=== PATIENT | female | born 1950 | race Two or more races ===

== ENCOUNTER 2016-04-10 12:22 | Inpatient (IN) | payer MEDICARE, MEDICAID ==
[~2016-04-10] VITALS: Ht 157.5 cm; Wt 80.6 kg
[~2016-04-10 12:22] MED LIST: FAM20T PO; IBUP800T24 PO; LIS10T PO; LOSA50TA6 PO; MELO-85 PO; METF-312 PO; OMEP20CA5 PO; OXYB15TA12 PO; PANT1INJ3 PO; PRE1T PO; SUMA50TA2 PO
[2016-04-10 13:57] LABS: Basophils # (auto) 0 uL; Basophils % (auto) 0.4 % (0.0-2.0); Eosinophils # (auto) 0 uL; Eosinophils % (auto) 0.8 % (0.0-7.0); Hematocrit 40.4 % (36.0-46.0); Hemoglobin 13.4 g/dL (12.2-16.2); Lymphocytes # (auto) 0.4 uL; Lymphocytes % (auto) 7.5 % (10.0-50.0); Mean Corpuscular Hgb Conc. 33.3 g/dL (32.0-36.0); Mean Corpuscular Volume 84.4 fL (80.0-100.0); Mean Platelet Volume 10.5 fL (7.4-10.4); Monocytes # (auto) 0.5 uL; Monocytes % (auto) 9.6 % (0.0-12.0); Neutrophils # (auto) 4.3 uL; Neutrophils % (auto) 81.7 % (37.0-80.0); Platelet Count (auto) 88 10^3/uL (140-450); Red Cell Distribution Width 15.4 % (11.6-16.0); White Blood Cell 5.2 10^3/uL (4.4-10.8)
[2016-04-10 14:06] LABS: Albumin 3.4 g/dL (3.4-5.0); BUN/Creatinine Ratio 14.3; Bilirubin, Total 1.1 mg/dL (0.2-1.0); Calcium 9.3 mg/dL (8.5-10.1); Potassium 3.7 mmol/L (3.5-5.1); Total Protein 8.5 g/dL (6.4-8.2)
[2016-04-10 14:16] LABS: INR 1.05 (0.9-1.15); Partial Thromboplastin Time 29.7 sec (22.64-33.71); Prothrombin Time 10.8 sec (9.37-12.3)
[2016-04-10 14:53] LABS: Urine Bilirubin Negative (Negative); Urine Blood TRACE /uL (Negative); Urine Color Yellow (Yellow); Urine Glucose Normal (Normal); Urine Ketone 1+ (Negative); Urine Mucus FEW (None Seen); Urine Nitrite Negative (Negative); Urine RBC 2 /hpf (0 - 4); Urine Squamous Epithelial Cell FEW /hpf (<5); Urine Urobilinogen Normal (Negative); Urine pH 6.5 (5.0-8.0)
[2016-04-10] MEDS ORDERED: cefTRIAXone 1GM/50ML D5W 50 ML IV ONE (15:00)
[2016-04-10] MEDS ORDERED: ONDANSETRON HCL 4 MG/2 ML VIAL IV ONE (15:00)
[2016-04-10] MEDS ORDERED: NALBUPHINE HCL 10 MG/1ml INJECTION IV ONE (15:00)
[2016-04-10] MEDS ORDERED: ACETAMINOPHEN 650 mg PER 20 mL UD PO ONE (15:30)
[2016-04-10] MEDS ORDERED: DEXTROSE (50%) 50ML SYRG IV PRN (20:45)
[2016-04-10] MEDS: OXYBUTYNIN CHL 5 MG TAB PO SCH (22:25)
[2016-04-11] MEDS: ACCU-CHEK COMFORT CURVE STRIP VI SCH ×5 (00:27→23:45)
[2016-04-11] MEDS: SODIUM CHLORIDE 0.9% 1,000 ML IV SCH ×2 (00:29→06:08)
[2016-04-11 05:43] VITALS: BP 119/50
[2016-04-11] MEDS: HYDROmorphone HCL 2 MG/ML VL IV PRN ×2 (06:29→16:45)
[2016-04-11] MEDS: ONDANSETRON HCL 4 MG/2 ML VIAL IV PRN ×2 (06:30→16:45)
[2016-04-11] MEDS: InsuLIN REG 1unit/0.01ml Soln (100units/ml) SC SCH ×5 (06:36→23:49)
[2016-04-11 06:46] LABS: Hematocrit 36.2 % (36.0-46.0); Hemoglobin 11.8 g/dL (12.2-16.2); Mean Corpuscular Hemoglobin 27.8 pg (28.0-32.0); Mean Corpuscular Hgb Conc. 32.5 g/dL (32.0-36.0); Mean Corpuscular Volume 85.6 fL (80.0-100.0); Mean Platelet Volume 10.2 fL (7.4-10.4); Platelet Count (auto) 83 10^3/uL (140-450); Red Cell Distribution Width 16.1 % (11.6-16.0); White Blood Cell 3.4 10^3/uL (4.4-10.8)
[2016-04-11 06:59] LABS: Metamyelocytes % 0; Myelocytes % 0; Promyelocytes % 0; Reactive Lymphocytes 0
[2016-04-11 07:46] LABS: Cholesterol 139 mg/dL (<200); LDL Cholesterol 83 mg/dL (<100); Triglycerides 77 mg/dL (<150)
[2016-04-11 08:29] LABS: Platelet Estimate Decreased; RBC Morphology Normal
[2016-04-11] MEDS: cefTRIAXone 1GM/50ML D5W 50 ML IV SCH (08:33)
[2016-04-11 09:18] VITALS: BP 148/85
[2016-04-11] MEDS ORDERED: LISINOPRIL 10 MG TAB PO SCH (10:00)
[2016-04-11] MEDS ORDERED: ENOXAPARIN SOD 30 MG/0.3 ML SYRINGE SC SCH (10:00)
[2016-04-11] MEDS ORDERED: PANTOPRAZOLE SODIUM 40 MG/10 ML VIAL IV SCH (10:00)
[2016-04-11] MEDS: predniSONE 5 MG TAB PO SCH (10:08)
[2016-04-11] MEDS: LOSARTAN POTASSIUM 50 MG TAB PO SCH (10:09)
[2016-04-11] MEDS: OXYBUTYNIN CHL 5 MG TAB PO SCH ×2 (10:09→21:16)
[2016-04-11 11:40] LABS: HDL Cholesterol 58 mg/dL (40-59)
[2016-04-11 13:00] VITALS: BP 123/59
[2016-04-11] MEDS ORDERED: PANTOPRAZOLE 40 MG TAB PO ONE (13:00)
[2016-04-11] MEDS: metroNIDAZOLE 500 MG TAB PO SCH ×2 (13:39→21:16)
[2016-04-11 17:14] VITALS: BP 108/57
[2016-04-11 21:06] VITALS: BP 116/60
[2016-04-12] MEDS: metroNIDAZOLE 500 MG TAB PO SCH ×3 (05:02→21:51)
[2016-04-12] MEDS: ACCU-CHEK COMFORT CURVE STRIP VI SCH ×3 (05:03→18:07)
[2016-04-12 05:22] VITALS: BP 119/60
[2016-04-12] MEDS: InsuLIN REG 1unit/0.01ml Soln (100units/ml) SC SCH ×3 (05:24→18:08)
[2016-04-12] MEDS: HYDROmorphone HCL 2 MG/ML VL IV PRN ×2 (08:49→16:52)
[2016-04-12] MEDS: cefTRIAXone 1GM/50ML D5W 50 ML IV SCH (08:49)
[2016-04-12 09:00] VITALS: BP 108/56
[2016-04-12] MEDS: OXYBUTYNIN CHL 5 MG TAB PO SCH ×2 (09:57→21:51)
[2016-04-12] MEDS: predniSONE 5 MG TAB PO SCH (09:57)
[2016-04-12] MEDS: LOSARTAN POTASSIUM 50 MG TAB PO SCH (09:57)
[2016-04-12] MEDS: PANTOPRAZOLE 40 MG TAB PO SCH (09:57)
[2016-04-12 13:00] VITALS: BP 113/58
[2016-04-12 17:00] VITALS: BP 127/56
[2016-04-12 22:28] VITALS: BP 127/62
[2016-04-13 05:19] VITALS: BP 124/58
[2016-04-13] MEDS: metroNIDAZOLE 500 MG TAB PO SCH ×3 (05:37→22:33)
[2016-04-13] MEDS: ACCU-CHEK COMFORT CURVE STRIP VI SCH ×4 (05:37→17:47)
[2016-04-13] MEDS: InsuLIN REG 1unit/0.01ml Soln (100units/ml) SC SCH ×4 (05:47→17:47)
[2016-04-13 09:00] VITALS: BP 129/65
[2016-04-13] MEDS: cefTRIAXone 1GM/50ML D5W 50 ML IV SCH (09:03)
[2016-04-13] MEDS: HYDROmorphone HCL 2 MG/ML VL IV PRN (09:04)
[2016-04-13] MEDS: predniSONE 5 MG TAB PO SCH (09:32)
[2016-04-13] MEDS: LOSARTAN POTASSIUM 50 MG TAB PO SCH (09:32)
[2016-04-13] MEDS: OXYBUTYNIN CHL 5 MG TAB PO SCH ×2 (09:32→22:33)
[2016-04-13] MEDS: PANTOPRAZOLE 40 MG TAB PO SCH (09:32)
[2016-04-13 13:00] VITALS: BP 117/59
[2016-04-13] MEDS: ONDANSETRON HCL 4 MG/2 ML VIAL IV PRN (13:31)
[2016-04-13 15:00] VITALS: BP 133/66
[2016-04-13 18:25] LABS: Hematocrit 38.2 % (36.0-46.0); Hemoglobin 12.1 g/dL (12.2-16.2)
[2016-04-13 22:05] VITALS: BP 128/63
[2016-04-14] MEDS: InsuLIN REG 1unit/0.01ml Soln (100units/ml) SC SCH ×4 (00:03→18:05)
[2016-04-14 01:09] LABS: Hematocrit 36.9 % (36.0-46.0); Hemoglobin 11.9 g/dL (12.2-16.2)
[2016-04-14 05:00] VITALS: BP 105/55
[2016-04-14 05:05] LABS: Basophils # (auto) 0 uL; Basophils % (auto) 0.4 % (0.0-2.0); Eosinophils # (auto) 0 uL; Eosinophils % (auto) 1.1 % (0.0-7.0); Hematocrit 36.6 % (36.0-46.0); Hemoglobin 11.7 g/dL (12.2-16.2); Lymphocytes # (auto) 0.9 uL; Lymphocytes % (auto) 40.1 % (10.0-50.0); Mean Corpuscular Hemoglobin 27.5 pg (28.0-32.0); Mean Corpuscular Hgb Conc. 32.1 g/dL (32.0-36.0); Mean Corpuscular Volume 85.6 fL (80.0-100.0); Mean Platelet Volume 9.7 fL (7.4-10.4); Monocytes # (auto) 0.4 uL; Monocytes % (auto) 15.1 % (0.0-12.0); Neutrophils % (auto) 43.3 % (37.0-80.0); Platelet Count (auto) 82 10^3/uL (140-450); Red Cell Distribution Width 15.3 % (11.6-16.0); White Blood Cell 2.4 10^3/uL (4.4-10.8)
[2016-04-14 05:16] LABS: INR 1.06 (0.9-1.15); Prothrombin Time 10.9 sec (9.37-12.3)
[2016-04-14 05:25] LABS: Albumin 2.5 g/dL (3.4-5.0); BUN/Creatinine Ratio 11.1; Calcium 8.4 mg/dL (8.5-10.1); Potassium 3.4 mmol/L (3.5-5.1)
[2016-04-14] MEDS: metroNIDAZOLE 500 MG TAB PO SCH ×3 (05:33→22:28)
[2016-04-14 05:36] LABS: Bilirubin, Total 0.2 mg/dL (0.2-1.0); Total Protein 6.8 g/dL (6.4-8.2)
[2016-04-14] MEDS: ACCU-CHEK COMFORT CURVE STRIP VI SCH ×4 (05:42→18:05)
[2016-04-14] MEDS: cefTRIAXone 1GM/50ML D5W 50 ML IV SCH ×2 (08:59→09:00)
[2016-04-14 09:00] VITALS: BP 130/73
[2016-04-14] MEDS: predniSONE 5 MG TAB PO SCH (10:00)
[2016-04-14] MEDS: OXYBUTYNIN CHL 5 MG TAB PO SCH ×2 (10:00→22:28)
[2016-04-14] MEDS: PANTOPRAZOLE 40 MG TAB PO SCH (10:00)
[2016-04-14] MEDS: LOSARTAN POTASSIUM 50 MG TAB PO SCH (10:00)
[2016-04-14] MEDS: fentaNYL CITRATE 100 MCG/2 ML VL ONE ×2 (11:22→11:29)
[2016-04-14] MEDS: MIDAZOLAM HCL 5 MG/ML-1ML VIAL ONE ×2 (11:22→11:29)
[2016-04-14] MEDS ORDERED: PROPRANOLOL HCL 20 MG TAB PO ONE (12:00)
[2016-04-14] MEDS ORDERED: LIDOCAINE VISCOUS 2% 15ML UD ONE (14:12)
[2016-04-14] MEDS ORDERED: SODIUM CHLORIDE LOCK 10 ML ONE (14:15)
[2016-04-14] MEDS ORDERED: diphenhdrAMINE HCL 50 MG/1 ML VL ONE ×2 (14:18→14:26)
[2016-04-14 14:22] LABS: Hematocrit 36.7 % (36.0-46.0); Hemoglobin 11.8 g/dL (12.2-16.2)
[2016-04-14 16:46] VITALS: BP 142/72
[2016-04-14 18:49] LABS: Hematocrit 38.8 % (36.0-46.0); Hemoglobin 12.4 g/dL (12.2-16.2)
[2016-04-14 21:56] VITALS: BP 146/65
[2016-04-14] MEDS: PROPRANOLOL HCL 20 MG TAB PO SCH (22:00)
[2016-04-15] MEDS: ACCU-CHEK COMFORT CURVE STRIP VI SCH ×3 (00:13→12:21)
[2016-04-15 05:00] VITALS: BP 126/65
[2016-04-15] MEDS: metroNIDAZOLE 500 MG TAB PO SCH (05:55)
[2016-04-15] MEDS: InsuLIN REG 1unit/0.01ml Soln (100units/ml) SC SCH ×3 (06:00→12:00)
[2016-04-15 06:18] LABS: Basophils # (auto) 0 uL; Basophils % (auto) 0.6 % (0.0-2.0); Eosinophils # (auto) 0 uL; Eosinophils % (auto) 1.3 % (0.0-7.0); Hematocrit 36.9 % (36.0-46.0); Hemoglobin 12.1 g/dL (12.2-16.2); Lymphocytes % (auto) 40.4 % (10.0-50.0); Mean Corpuscular Hemoglobin 28.1 pg (28.0-32.0); Mean Corpuscular Hgb Conc. 32.9 g/dL (32.0-36.0); Mean Corpuscular Volume 85.4 fL (80.0-100.0); Mean Platelet Volume 9.6 fL (7.4-10.4); Monocytes # (auto) 0.3 uL; Monocytes % (auto) 14.1 % (0.0-12.0); Neutrophils # (auto) 1.1 uL; Neutrophils % (auto) 43.6 % (37.0-80.0); Platelet Count (auto) 69 10^3/uL (140-450); Red Cell Distribution Width 15.2 % (11.6-16.0); White Blood Cell 2.5 10^3/uL (4.4-10.8)
[2016-04-15 06:33] LABS: INR 1.13 (0.9-1.15); Prothrombin Time 11.6 sec (9.37-12.3)
[2016-04-15 06:42] LABS: Calcium 8.2 mg/dL (8.5-10.1); Magnesium 1.8 mg/dL (1.6-2.6); Potassium 3.1 mmol/L (3.5-5.1)
[2016-04-15 09:00] VITALS: BP 131/71
[2016-04-15] MEDS: cefTRIAXone 1GM/50ML D5W 50 ML IV SCH (09:00)
[2016-04-15] MEDS: PANTOPRAZOLE 40 MG TAB PO SCH (10:07)
[2016-04-15] MEDS: OXYBUTYNIN CHL 5 MG TAB PO SCH (10:07)
[2016-04-15] MEDS: predniSONE 5 MG TAB PO SCH (10:07)
[2016-04-15] MEDS: PROPRANOLOL HCL 20 MG TAB PO SCH (10:07)
[2016-04-15] MEDS: LOSARTAN POTASSIUM 50 MG TAB PO SCH (10:08)
[2016-04-15 13:00] VITALS: BP 149/73
== END 2016-04-15 15:00 | disposition home or self-care (01) | DRG 444 ==
LOC: ER 12:27 → OVERFLOW 12:28 → WEST WING 22:25
PROVIDERS: ADMIT Family Medicine; ATTEND Internal Medicine
PROC: 0W3P8ZZ Control Bleeding in Gastrointestinal Tract, Via Natural or Artificial Opening Endoscopic (ICD-10-PCS; principal; 2016-04-14 11:17)
DX: K80.20 Calculus of gallbladder without cholecystitis without obstruction (principal); I85.01 Esophageal varices with bleeding; N39.0 Urinary tract infection, site not specified; K74.60 Unspecified cirrhosis of liver; D69.6 Thrombocytopenia, unspecified; E11.9 Type 2 diabetes mellitus without complications; E66.9 Obesity, unspecified; A08.4 Viral intestinal infection, unspecified; K29.70 Gastritis, unspecified, without bleeding; K76.0 Fatty (change of) liver, not elsewhere classified; G43.909 Migraine, unspecified, not intractable, without status migrainosus; I10 Essential (primary) hypertension; K57.30 Diverticulosis of large intestine without perforation or abscess without bleeding; Z85.41 Personal history of malignant neoplasm of cervix uteri; Z90.710 Acquired absence of both cervix and uterus; Z88.5 Allergy status to narcotic agent; Z79.84 Long term (current) use of oral hypoglycemic drugs; Z98.890 Other specified postprocedural states; Z68.32 Body mass index [BMI] 32.0-32.9, adult
CPT/HCPCS: 36415; 43244; 71010; 74176; 80048; 80053; 80061; 81001; 82150; 82270; 82962; 83036; 83690; 83735; 84484; 85007; 85014; 85018; 85025; 85027; 85610; 85730; 93005; 94761; 96365; 96375; C9113; J0696; J1815; J2250; J2405

== ENCOUNTER → 2016-06-16 | Outpatient (CLI) | payer MEDICARE, MEDICAID ==
[~2016-06-16] MED LIST changes: -IBUP800T24 PO
[2016-06-16 15:11] LABS: Basophils # (auto) 0 uL; Basophils % (auto) 0.7 % (0.0-2.0); Eosinophils # (auto) 0.1 uL; Hematocrit 37.1 % (36.0-46.0); Hemoglobin 12.3 g/dL (12.2-16.2); Lymphocytes % (auto) 25.3 % (10.0-50.0); Mean Corpuscular Hemoglobin 28.3 pg (28.0-32.0); Mean Corpuscular Hgb Conc. 33.2 g/dL (32.0-36.0); Mean Corpuscular Volume 85.3 fL (80.0-100.0); Mean Platelet Volume 9.9 fL (7.4-10.4); Monocytes # (auto) 0.4 uL; Monocytes % (auto) 10.5 % (0.0-12.0); Neutrophils # (auto) 2.4 uL; Neutrophils % (auto) 61.5 % (37.0-80.0); Platelet Count (auto) 102 10^3/uL (140-450); Red Cell Distribution Width 16.2 % (11.6-16.0); White Blood Cell 3.9 10^3/uL (4.4-10.8)
[2016-06-16 16:17] LABS: Hepatitis B Surface Antibody Negative
== END | disposition home or self-care (01) ==
LOC: LAB 13:17
PROVIDERS: ATTEND Internal Medicine
DX: E11.9 Type 2 diabetes mellitus without complications (principal); M25.579 Pain in unspecified ankle and joints of unspecified foot; I10 Essential (primary) hypertension
CPT/HCPCS: 36415; 82607; 84439; 84443; 85025; 86160; 86225; 86235; 86376; 86431; 86704; 86705; 86706; 86708; 86803; 87340

== ENCOUNTER → 2016-07-19 | Outpatient (CLI) | payer MEDICARE, MEDICAID ==
[~2016-07-19] MED LIST changes: +GLIM1TAB PO; +LEVO25TA49 PO; -LOSA50TA6 PO; -MELO-85 PO; -METF-312 PO; -OXYB15TA12 PO; -PANT1INJ3 PO; -PRE1T PO; +SOTA80TA20 PO
== END | disposition home or self-care (01) ==
LOC: LAB 15:00
PROVIDERS: ATTEND Internal Medicine
DX: M25.50 Pain in unspecified joint (principal); R30.0 Dysuria; E87.6 Hypokalemia
CPT/HCPCS: 36415; 84132; 86225; 86235; 87086

== ENCOUNTER 2016-08-18 08:16 | Day surgery (SDC) | payer MEDICARE, MEDICAID ==
[2016-08-16 13:42] LABS: Basophils # (auto) 0 uL; Basophils % (auto) 1.1 % (0.0-2.0); Eosinophils # (auto) 0.1 uL; Eosinophils % (auto) 1.9 % (0.0-7.0); Hematocrit 37.8 % (36.0-46.0); Hemoglobin 12.3 g/dL (12.2-16.2); Lymphocytes # (auto) 0.9 uL; Lymphocytes % (auto) 22.8 % (10.0-50.0); Mean Corpuscular Hemoglobin 27.7 pg (28.0-32.0); Mean Corpuscular Hgb Conc. 32.4 g/dL (32.0-36.0); Mean Corpuscular Volume 85.4 fL (80.0-100.0); Mean Platelet Volume 10.5 fL (7.4-10.4); Monocytes # (auto) 0.3 uL; Monocytes % (auto) 7.6 % (0.0-12.0); Neutrophils # (auto) 2.6 uL; Neutrophils % (auto) 66.6 % (37.0-80.0); Platelet Count (auto) 108 10^3/uL (140-450); Red Cell Distribution Width 15.8 % (11.6-16.0); White Blood Cell 3.9 10^3/uL (4.4-10.8)
[2016-08-16 13:48] LABS: INR 1.01 (0.9-1.15); Prothrombin Time 10.9 sec (9.37-12.3)
[~2016-08-18] VITALS: Ht 157.5 cm; Wt 77.1 kg
[~2016-08-18 08:16] MED LIST changes: -FAM20T PO; -LIS10T PO; +LOSA50TA6 PO; -OMEP20CA5 PO; +PANT40TA2 PO; +PRO20T OR; -SOTA80TA20 PO; -SUMA50TA2 PO
[2016-08-18 10:20] VITALS: BP 159/73
[2016-08-19] MEDS ORDERED: LIDOCAINE VISCOUS 2% 15ML UD ONE (12:49)
[2016-08-19] MEDS ORDERED: SODIUM CHLORIDE LOCK 0 ML ONE (12:49)
[2016-08-19] MEDS ORDERED: MIDAZOLAM HCL 5 MG/ML-1ML VIAL ONE (12:50)
[2016-08-19] MEDS ORDERED: diphenhdrAMINE HCL 50 MG/1 ML VL ONE (12:50)
[2016-08-19] MEDS ORDERED: fentaNYL CITRATE 100 MCG/2 ML VL ONE (12:50)
== END 2016-08-18 10:30 | disposition home or self-care (01) ==
LOC: GI 08:16
PROVIDERS: ATTEND Internal Medicine Gastroenterology
DX: K29.50 Unspecified chronic gastritis without bleeding (principal); I85.10 Secondary esophageal varices without bleeding; K76.6 Portal hypertension; K31.89 Other diseases of stomach and duodenum; E66.9 Obesity, unspecified; Z90.710 Acquired absence of both cervix and uterus; E11.9 Type 2 diabetes mellitus without complications
CPT/HCPCS: 36415; 43235; 82962; 85025; 85610; 85730; J2250; J3010; J7030

== ENCOUNTER 2016-11-15 09:41 | Emergency (ER) | payer MEDICARE, MEDICAID ==
[~2016-11-15] VITALS: Ht 160 cm; Wt 78.0 kg
[2016-11-15 10:48] VITALS: BP 136/85
== END 2016-11-15 11:45 | disposition home or self-care (01) ==
LOC: ER 09:41
DX: G89.29 Other chronic pain (principal); R51 Headache; Z88.6 Allergy status to analgesic agent; Z79.899 Other long term (current) drug therapy; E11.9 Type 2 diabetes mellitus without complications; I10 Essential (primary) hypertension; Z87.440 Personal history of urinary (tract) infections; Z90.710 Acquired absence of both cervix and uterus

== ENCOUNTER → 2016-11-30 | Outpatient (CLI) | payer MEDICARE, MEDICAID ==
[2016-11-30 10:45] LABS: Potassium 3.1 mmol/L (3.5-5.1)
[2016-11-30 10:46] LABS: Magnesium 2.1 mg/dL (1.6-2.6)
[2016-12-02 12:07] LABS: Fecal Fats Neutral Normal (.); Fecal Fats Total Normal (.)
== END | disposition home or self-care (01) ==
LOC: LAB 09:32
PROVIDERS: ATTEND Internal Medicine Gastroenterology
DX: E11.9 Type 2 diabetes mellitus without complications (principal); R19.7 Diarrhea, unspecified
CPT/HCPCS: 36415; 82705; 83036; 83735; 84132; 84439; 84443; 87045; 87177; 87493; 87899

== ENCOUNTER → 2016-12-22 | Outpatient (CLI) | payer MEDICARE, MEDICAID | END | disposition home or self-care (01) | LOC: LAB 12:16 | PROVIDERS: ATTEND Urology | DX: N39.0 Urinary tract infection, site not specified (principal); I10 Essential (primary) hypertension; E11.9 Type 2 diabetes mellitus without complications | CPT/HCPCS: 87086; 87088; 87186 ==

== ENCOUNTER → 2017-01-02 | Outpatient (CLI) | payer MEDICARE, MEDICAID ==
[~2017-01-02] VITALS: Ht 157.5 cm; Wt 80.3 kg
[2017-01-02 10:32] LABS: Basophils # (auto) 0.1 uL; Basophils % (auto) 1.5 % (0.0-2.0); Eosinophils # (auto) 0.1 uL; Eosinophils % (auto) 2.5 % (0.0-7.0); Hematocrit 38.3 % (36.0-46.0); Hemoglobin 12.8 g/dL (12.2-16.2); Lymphocytes # (auto) 1.1 uL; Lymphocytes % (auto) 24.6 % (10.0-50.0); Mean Corpuscular Hemoglobin 29.1 pg (28.0-32.0); Mean Corpuscular Hgb Conc. 33.5 g/dL (32.0-36.0); Mean Corpuscular Volume 86.9 fL (80.0-100.0); Mean Platelet Volume 9.2 fL (6.9-10.8); Monocytes # (auto) 0.4 uL; Monocytes % (auto) 8.5 % (0.0-12.0); Neutrophils # (auto) 2.7 uL; Neutrophils % (auto) 62.9 % (37.0-80.0); Nucleated Red Blood Cells % 0.1 %; Platelet Count (auto) 82 10^3/uL (140-450); Red Cell Distribution Width 14.7 % (11.8-14.3); White Blood Cell 4.3 10^3/uL (4.4-10.8)
[2017-01-02 11:20] LABS: INR 1.01 (0.9-1.15)
[2017-01-02 11:23] LABS: Albumin 3.1 g/dL (3.4-5.0); BUN/Creatinine Ratio 29.2; Bilirubin, Total 0.9 mg/dL (0.2-1.0); Calcium 9.2 mg/dL (8.5-10.1); Potassium 3.6 mmol/L (3.5-5.1); Total Protein 8.2 g/dL (6.4-8.2)
== END | disposition home or self-care (01) ==
LOC: LAB 08:00 → EDSTATUS 01-06 11:15
PROVIDERS: ATTEND Internal Medicine Gastroenterology
DX: I85.00 Esophageal varices without bleeding (principal); Z85.41 Personal history of malignant neoplasm of cervix uteri; I10 Essential (primary) hypertension; Z90.710 Acquired absence of both cervix and uterus; Z79.899 Other long term (current) drug therapy
CPT/HCPCS: 36415; 80053; 82105; 85025; 85610

== ENCOUNTER 2017-01-04 08:21 | Emergency (ER) | payer MEDICARE, MEDICAID ==
[~2017-01-04] VITALS: Ht 160 cm; Wt 78.9 kg
[~2017-01-04 08:21] MED LIST changes: -LEVO25TA49 PO; -LOSA50TA6 PO
[2017-01-04 09:30] LABS: Basophils # (auto) 0 uL; Basophils % (auto) 0.4 % (0.0-2.0); Eosinophils # (auto) 0 uL; Eosinophils % (auto) 0.3 % (0.0-7.0); Hematocrit 38.8 % (36.0-46.0); Hemoglobin 12.9 g/dL (12.2-16.2); Lymphocytes # (auto) 0.8 uL; Lymphocytes % (auto) 8.7 % (10.0-50.0); Mean Corpuscular Hemoglobin 29.1 pg (28.0-32.0); Mean Corpuscular Hgb Conc. 33.3 g/dL (32.0-36.0); Mean Corpuscular Volume 87.3 fL (80.0-100.0); Mean Platelet Volume 9.2 fL (6.9-10.8); Monocytes # (auto) 0.5 uL; Monocytes % (auto) 5.4 % (0.0-12.0); Neutrophils # (auto) 7.5 uL; Neutrophils % (auto) 85.2 % (37.0-80.0); Nucleated Red Blood Cells % 0.1 %; Platelet Count (auto) 78 10^3/uL (140-450); Red Cell Distribution Width 14.8 % (11.8-14.3); White Blood Cell 8.8 10^3/uL (4.4-10.8)
[2017-01-04 09:51] LABS: Albumin 3.1 g/dL (3.4-5.0); BUN/Creatinine Ratio 16.1; Calcium 9.2 mg/dL (8.5-10.1); Potassium 3.3 mmol/L (3.5-5.1)
[2017-01-04 09:54] LABS: Total Protein 7.9 g/dL (6.4-8.2)
[2017-01-04 10:18] LABS: Urine Bilirubin Negative (Negative); Urine Blood TRACE /uL (Negative); Urine Color Yellow (Yellow); Urine Glucose Normal (Normal); Urine Ketone Negative (Negative); Urine Mucus FEW (None Seen); Urine Nitrite Negative (Negative); Urine RBC 1 /hpf (0 - 4); Urine Squamous Epithelial Cell FEW /hpf (<5); Urine Urobilinogen Normal (Negative)
[2017-01-04] MEDS ORDERED: SODIUM CHLORIDE 0.9% 1,000 ML IV ONE (11:34)
[2017-01-04] MEDS ORDERED: METOCLOPRAMIDE HCL 5MG/ml INJ 2ml VIAL IV ONE (11:45)
[2017-01-04] MEDS ORDERED: KETOROLAC TROMETH 30 MG/ML 1ML VIAL IV ONE (11:45)
[2017-01-04] MEDS ORDERED: POTASSIUM CHL 10% (20 MEQ/15ML) 15ml ORAL SOLN PO ONE (13:45)
[2017-01-04 14:07] VITALS: BP 160/60
== END 2017-01-04 14:22 | disposition home or self-care (01) ==
LOC: ER 08:21
DX: M54.9 Dorsalgia, unspecified (principal); G89.29 Other chronic pain; R51 Headache; E11.9 Type 2 diabetes mellitus without complications; K21.9 Gastro-esophageal reflux disease without esophagitis; I10 Essential (primary) hypertension; E87.6 Hypokalemia; E44.0 Moderate protein-calorie malnutrition; Z85.41 Personal history of malignant neoplasm of cervix uteri; Z88.5 Allergy status to narcotic agent
CPT/HCPCS: 36415; 71020; 80053; 81001; 83735; 85025; 94761; 96361; 96374; 96375; 99285; J1885; J2765; J7030; 93005

== ENCOUNTER 2017-03-02 16:10 | Emergency (ER) | payer MEDICARE, MEDICAID ==
[~2017-03-02] VITALS: Ht 157.5 cm; Wt 77.1 kg
[2017-03-02 17:32] VITALS: BP 178/79
== END 2017-03-02 17:57 | disposition home or self-care (01) ==
LOC: ER 16:17
DX: S80.221A Blister (nonthermal), right knee, initial encounter (principal); E11.9 Type 2 diabetes mellitus without complications; K21.9 Gastro-esophageal reflux disease without esophagitis; I10 Essential (primary) hypertension; Z90.710 Acquired absence of both cervix and uterus; Z88.6 Allergy status to analgesic agent; W19.XXXA Unspecified fall, initial encounter; Y93.89 Activity, other specified; Y99.8 Other external cause status; Y92.89 Other specified places as the place of occurrence of the external cause
CPT/HCPCS: 73562

== ENCOUNTER → 2017-03-16 | Outpatient (CLI) | payer MEDICARE, MEDICAID ==
[2017-03-16 11:55] LABS: Basophils # (auto) 0.1 uL; Basophils % (auto) 1.3 % (0.0-2.0); Eosinophils # (auto) 0.1 uL; Eosinophils % (auto) 2.1 % (0.0-7.0); Hematocrit 40.5 % (36.0-46.0); Hemoglobin 13.5 g/dL (12.2-16.2); Lymphocytes % (auto) 20.7 % (10.0-50.0); Mean Corpuscular Hemoglobin 29.3 pg (28.0-32.0); Mean Corpuscular Hgb Conc. 33.2 g/dL (32.0-36.0); Mean Corpuscular Volume 88.2 fL (80.0-100.0); Monocytes # (auto) 0.4 uL; Monocytes % (auto) 8.9 % (0.0-12.0); Neutrophils # (auto) 3.3 uL; Nucleated Red Blood Cells % 0.1 %; Platelet Count (auto) 106 10^3/uL (140-450); Red Cell Distribution Width 16.2 % (11.8-14.3); White Blood Cell 4.8 10^3/uL (4.4-10.8)
== END | disposition home or self-care (01) ==
LOC: LAB 11:30
PROVIDERS: ATTEND Internal Medicine
DX: E11.9 Type 2 diabetes mellitus without complications (principal); E03.9 Hypothyroidism, unspecified; N39.0 Urinary tract infection, site not specified
CPT/HCPCS: 36415; 83036; 84439; 84443; 85025; 85652; 87086

== ENCOUNTER 2017-04-05 12:22 | Emergency (ER) | payer MEDICARE, MEDICAID ==
[~2017-04-05] VITALS: Ht 157.5 cm; Wt 78.9 kg
[2017-04-05 14:16] LABS: Basophils # (auto) 0 uL; Basophils % (auto) 0.5 % (0.0-2.0); Eosinophils # (auto) 0.1 uL; Eosinophils % (auto) 1.2 % (0.0-7.0); Hematocrit 37.8 % (36.0-46.0); Hemoglobin 12.5 g/dL (12.2-16.2); Lymphocytes # (auto) 0.5 uL; Lymphocytes % (auto) 8.8 % (10.0-50.0); Mean Corpuscular Hgb Conc. 32.9 g/dL (32.0-36.0); Monocytes # (auto) 0.3 uL; Neutrophils # (auto) 4.4 uL; Neutrophils % (auto) 83.5 % (37.0-80.0); Nucleated Red Blood Cells % 0.2 %; Platelet Count (auto) 106 10^3/uL (140-450); Red Cell Distribution Width 15.6 % (11.8-14.3); White Blood Cell 5.2 10^3/uL (4.4-10.8)
[2017-04-05 14:21] LABS: BUN/Creatinine Ratio 21.9; Calcium 8.9 mg/dL (8.5-10.1); Potassium 3.5 mmol/L (3.5-5.1); Total Protein 8.2 g/dL (6.4-8.2)
[2017-04-05 17:03] VITALS: BP 150/78
== END 2017-04-05 17:33 | disposition home or self-care (01) ==
LOC: ER 12:22
DX: R19.7 Diarrhea, unspecified (principal); K21.9 Gastro-esophageal reflux disease without esophagitis; E11.9 Type 2 diabetes mellitus without complications; I10 Essential (primary) hypertension; Z85.41 Personal history of malignant neoplasm of cervix uteri; Z88.5 Allergy status to narcotic agent
CPT/HCPCS: 36415; 80053; 85025

== ENCOUNTER → 2017-07-05 | Outpatient (CLI) | payer MEDICARE, MEDICAID ==
[2017-07-05 09:48] LABS: Basophils # (auto) 0 uL; Basophils % (auto) 1.1 % (0.0-2.0); Eosinophils # (auto) 0.1 uL; Eosinophils % (auto) 2.1 % (0.0-7.0); Hematocrit 38.9 % (36.0-46.0); Lymphocytes # (auto) 0.9 uL; Lymphocytes % (auto) 22.9 % (10.0-50.0); Mean Corpuscular Hemoglobin 29.4 pg (28.0-32.0); Mean Corpuscular Hgb Conc. 33.4 g/dL (32.0-36.0); Monocytes # (auto) 0.3 uL; Neutrophils # (auto) 2.5 uL; Neutrophils % (auto) 65.9 % (37.0-80.0); Platelet Count (auto) 86 10^3/uL (140-450); Red Blood Cells 4.42 10^6/uL (4.0-5.20); Red Cell Distribution Width 15.1 % (11.8-14.3); White Blood Cell 3.8 10^3/uL (4.4-10.8)
[2017-07-05 10:05] LABS: Urine Bacteria NONE SEEN /hpf (None Seen); Urine Blood Negative /uL (Negative); Urine Mucus FEW (None Seen); Urine Specific Gravity 1.013 (1.001-1.035); Urine WBC 2 /hpf (0 - 5)
[2017-07-05 10:32] LABS: Albumin 2.9 g/dL (3.4-5.0); Calcium 9.2 mg/dL (8.5-10.1); Potassium 4.1 mmol/L (3.5-5.1)
[2017-07-05 10:42] LABS: BUN/Creatinine Ratio 19.7; Bilirubin, Total 0.8 mg/dL (0.2-1.0); Total Protein 8.1 g/dL (6.4-8.2)
== END | disposition home or self-care (01) ==
LOC: LAB 09:13
PROVIDERS: ATTEND Internal Medicine
DX: E78.00 Pure hypercholesterolemia, unspecified (principal); E11.9 Type 2 diabetes mellitus without complications; I10 Essential (primary) hypertension
CPT/HCPCS: 36415; 80053; 80061; 81001; 82043; 83036; 84439; 84443; 85025; 85652

== ENCOUNTER → 2017-07-05 | Outpatient (CLI) | payer MEDICARE, MEDICAID | END | disposition home or self-care (01) | LOC: XYW 08:07 | PROVIDERS: ATTEND Internal Medicine | DX: Z01.818 Encounter for other preprocedural examination (principal); I10 Essential (primary) hypertension; E11.9 Type 2 diabetes mellitus without complications; E78.00 Pure hypercholesterolemia, unspecified | CPT/HCPCS: 36415; 80053; 80061; 81001; 82043; 83036; 84439; 84443; 85025; 85652; 93306 ==

== ENCOUNTER → 2017-08-04 | Outpatient (CLI) | payer MEDICARE, MEDICAID | END | disposition home or self-care (01) | LOC: LAB 10:02 | PROVIDERS: ATTEND Internal Medicine | DX: N30.40 Irradiation cystitis without hematuria (principal); R31.9 Hematuria, unspecified; E11.9 Type 2 diabetes mellitus without complications; I10 Essential (primary) hypertension; E78.00 Pure hypercholesterolemia, unspecified | CPT/HCPCS: 87086 ==

== ENCOUNTER 2017-11-24 07:35 | Inpatient (IN) | payer MEDICARE, MEDICAID ==
[~2017-11-24] VITALS: Ht 157.5 cm; Wt 89.9 kg
[2017-11-24] MEDS ORDERED: SODIUM CHLORIDE 0.9% 1,000 ML IV ONE ×2 (08:26)
[2017-11-24] MEDS ORDERED: KETOROLAC TROMETH 30 MG/ML 1ML VIAL IV ONE (08:30)
[2017-11-24 08:34] LABS: Basophils # (auto) 0.1 uL; Basophils % (auto) 0.7 % (0.0-2.0); Eosinophils # (auto) 0 uL; Eosinophils % (auto) 0.4 % (0.0-7.0); Hemoglobin 9.8 g/dL (12.2-16.2); Lymphocytes # (auto) 0.8 uL; Mean Corpuscular Hemoglobin 22.5 pg (28.0-32.0); Mean Corpuscular Hgb Conc. 31.4 g/dL (32.0-36.0); Mean Corpuscular Volume 71.7 fL (80.0-100.0)
[2017-11-24 08:36] LABS: Hematocrit 31.2 % (36.0-46.0); Monocytes # (auto) 0.6 uL; Monocytes % (auto) 8.1 % (0.0-12.0); Neutrophils # (auto) 6.2 uL; Neutrophils % (auto) 80.8 % (37.0-80.0); Platelet Count (auto) 96 10^3/uL (140-450); Red Blood Cells 4.35 10^6/uL (4.0-5.20); White Blood Cell 7.7 10^3/uL (4.4-10.8)
[2017-11-24 08:55] LABS: Urine Bacteria FEW /hpf (None Seen); Urine Blood 2+ /uL (Negative); Urine Specific Gravity 1.017 (1.001-1.035); Urine WBC 1943 /hpf (0 - 5); Urine WBC Clumps PRESENT /hpf (None Seen)
[2017-11-24 08:55] LABS: Anion Gap 10 (5-15); Aspartate Aminotransferase 29 U/L (15-37); BUN/Creatinine Ratio 13.9; Blood Urea Nitrogen 10 mg/dL (7-18); Calcium 8.6 mg/dL (8.5-10.1); Carbon Dioxide 21 mmol/L (21-32); Chloride 108 mmol/L (98-107); GFR African American 104 mL/min; GFR Non-African American 86 mL/min; Glucose 182 mg/dL (74-106); Potassium 4.2 mmol/L (3.5-5.1); Sodium 139 mmol/L (136-145)
[2017-11-24 09:00] LABS: Alanine Aminotransferase 20 U/L (13-56); Alkaline Phosphatase 179 U/L (45-117); Bilirubin, Total 1.5 mg/dL (0.2-1.0); Total Protein 8.2 g/dL (6.4-8.2)
[2017-11-24] MEDS ORDERED: cefTRIAXone 1GM/10ml IVPUSH 10 ML IV ONE (09:15)
[2017-11-24] MEDS ORDERED: ONDANSETRON HCL 4 MG/2 ML VIAL IV ONE (09:15)
[2017-11-24] MEDS: SODIUM CHLORIDE 0.9% 1,000 ML IV SCH ×2 (10:06→20:21)
[2017-11-24] MEDS ORDERED: PROMETHAZINE HCL 25 MG/ML 1ML IV PRN (10:15)
[2017-11-24] MEDS ORDERED: LORazepam 0.5 MG TAB PO PRN (10:15)
[2017-11-24] MEDS ORDERED: TEMAZEPAM 15 MG CAP PO PRN (10:15)
[2017-11-24] MEDS ORDERED: NITROGLYCERIN 0.4 MG SL TAB SL PRN (10:15)
[2017-11-24] MEDS ORDERED: traMADol HCL 50 MG TAB PO PRN (10:15)
[2017-11-24] MEDS ORDERED: DEXTROSE (50%) 50ML SYRG IV PRN (10:15)
[2017-11-24] MEDS ORDERED: IOHEXOL 300 MG/ML 100ML BOTTLE IJ ONE ×2 (10:23→14:14)
[2017-11-24] MEDS: PANTOPRAZOLE 40 MG TAB PO SCH (10:45)
[2017-11-24] MEDS: ACCU-CHEK COMFORT CURVE STRIP VI SCH ×3 (14:04→22:20)
[2017-11-24] MEDS: ENOXAPARIN SOD 40 MG/0.4 ML SYRINGE SC SCH (14:54)
[2017-11-24] MEDS: InsuLIN REG 1unit/0.01ml Soln (100units/ml) SC SCH ×3 (14:54→22:20)
[2017-11-24 21:25] VITALS: BP 150/73
[2017-11-24 22:27] VITALS: BP 150/73
[2017-11-25 05:00] VITALS: BP 136/60
[2017-11-25] MEDS: SODIUM CHLORIDE 0.9% 1,000 ML IV SCH ×2 (05:41→16:09)
[2017-11-25] MEDS: InsuLIN REG 1unit/0.01ml Soln (100units/ml) SC SCH ×4 (06:15→21:34)
[2017-11-25] MEDS: ACCU-CHEK COMFORT CURVE STRIP VI SCH ×4 (06:17→21:33)
[2017-11-25 07:54] LABS: Basophils # (auto) 0 uL; Eosinophils # (auto) 0.1 uL; Eosinophils % (auto) 1.6 % (0.0-7.0); Hemoglobin 8.3 g/dL (12.2-16.2); Lymphocytes # (auto) 0.5 uL; Monocytes # (auto) 0.4 uL; Neutrophils # (auto) 2.8 uL; White Blood Cell 3.9 10^3/uL (4.4-10.8)
[2017-11-25 07:57] LABS: Hematocrit 26.8 % (36.0-46.0); Lymphocytes % (auto) 13.8 % (10.0-50.0); Mean Corpuscular Hemoglobin 22.3 pg (28.0-32.0); Mean Corpuscular Volume 71.9 fL (80.0-100.0); Monocytes % (auto) 10.4 % (0.0-12.0); Neutrophils % (auto) 73.2 % (37.0-80.0); Platelet Count (auto) 70 10^3/uL (140-450); Red Blood Cells 3.73 10^6/uL (4.0-5.20); Red Cell Distribution Width 18.4 % (11.8-14.3)
[2017-11-25 08:26] LABS: Albumin 2.5 g/dL (3.4-5.0); BUN/Creatinine Ratio 25.5; Bilirubin, Total 1.1 mg/dL (0.2-1.0); Calcium 8.1 mg/dL (8.5-10.1); Potassium 3.9 mmol/L (3.5-5.1); Total Protein 6.9 g/dL (6.4-8.2)
[2017-11-25 09:00] VITALS: BP 151/73
[2017-11-25] MEDS: cefTRIAXone 1GM/10ml IVPUSH 10 ML IV SCH (10:20)
[2017-11-25] MEDS: KETOROLAC TROMETH 30 MG/ML 1ML VIAL IV PRN (10:21)
[2017-11-25] MEDS: ENOXAPARIN SOD 40 MG/0.4 ML SYRINGE SC SCH (10:21)
[2017-11-25] MEDS: PANTOPRAZOLE 40 MG TAB PO SCH (11:16)
[2017-11-25 12:26] VITALS: BP 143/63
[2017-11-25 16:31] VITALS: BP 133/63
[2017-11-25] MEDS: Glucerna Carbsteady SHAKE Vanilla 8oz PO SCH (18:02)
[2017-11-25 22:00] VITALS: BP 137/60
[2017-11-25 22:48] LABS: Urine Bacteria FEW /hpf (None Seen); Urine Blood 1+ /uL (Negative); Urine Mucus FEW (None Seen); Urine Specific Gravity 1.007 (1.001-1.035); Urine WBC 35 /hpf (0 - 5)
[2017-11-26] MEDS: SODIUM CHLORIDE 0.9% 1,000 ML IV SCH ×3 (02:23→21:39)
[2017-11-26 04:17] LABS: Basophils # (auto) 0 uL; Eosinophils # (auto) 0.1 uL; Lymphocytes # (auto) 0.6 uL; Monocytes # (auto) 0.4 uL; Nucleated Red Blood Cells % 0.1 %; Red Cell Distribution Width 18.4 % (11.8-14.3)
[2017-11-26 04:20] LABS: Basophils % (auto) 0.8 % (0.0-2.0); Eosinophils % (auto) 2.7 % (0.0-7.0); Hematocrit 25.8 % (36.0-46.0); Lymphocytes % (auto) 17.4 % (10.0-50.0); Mean Corpuscular Hemoglobin 22.3 pg (28.0-32.0); Mean Corpuscular Volume 72.1 fL (80.0-100.0); Monocytes % (auto) 11.6 % (0.0-12.0); Neutrophils # (auto) 2.3 uL; Neutrophils % (auto) 67.5 % (37.0-80.0); Platelet Count (auto) 70 10^3/uL (140-450); Red Blood Cells 3.58 10^6/uL (4.0-5.20); White Blood Cell 3.4 10^3/uL (4.4-10.8)
[2017-11-26 04:34] LABS: BUN/Creatinine Ratio 26.5; Calcium 7.9 mg/dL (8.5-10.1)
[2017-11-26 05:00] VITALS: BP 131/67
[2017-11-26] MEDS: ACCU-CHEK COMFORT CURVE STRIP VI SCH ×4 (06:14→21:38)
[2017-11-26] MEDS: InsuLIN REG 1unit/0.01ml Soln (100units/ml) SC SCH ×4 (06:14→21:39)
[2017-11-26] MEDS: KETOROLAC TROMETH 30 MG/ML 1ML VIAL IV PRN ×2 (06:14→21:35)
[2017-11-26 08:00] VITALS: BP 124/61
[2017-11-26] MEDS: ENOXAPARIN SOD 40 MG/0.4 ML SYRINGE SC SCH (12:23)
[2017-11-26] MEDS: PANTOPRAZOLE 40 MG TAB PO SCH (12:23)
[2017-11-26] MEDS: Glucerna Carbsteady SHAKE Vanilla 8oz PO SCH ×3 (12:23→17:16)
[2017-11-26] MEDS: cefTRIAXone 1GM/10ml IVPUSH 10 ML IV SCH (12:23)
[2017-11-26 12:34] LABS: INR 0.97 (0.9-1.15); Prothrombin Time 10.4 sec (9.27-12.13)
[2017-11-26 12:40] VITALS: BP 147/67
[2017-11-26 16:44] VITALS: BP 152/83
[2017-11-26 21:38] VITALS: BP 141/62
[2017-11-27 05:00] VITALS: BP 145/74
[2017-11-27] MEDS: InsuLIN REG 1unit/0.01ml Soln (100units/ml) SC SCH ×4 (06:23→22:23)
[2017-11-27] MEDS: ACCU-CHEK COMFORT CURVE STRIP VI SCH ×4 (06:23→22:23)
[2017-11-27 07:48] LABS: BUN/Creatinine Ratio 17.8; Calcium 8.4 mg/dL (8.5-10.1)
[2017-11-27 07:49] LABS: Potassium 4.2 mmol/L (3.5-5.1)
[2017-11-27 07:59] LABS: Mean Corpuscular Volume 72.1 fL (80.0-100.0); Platelet Count (auto) 84 10^3/uL (140-450)
[2017-11-27 08:02] LABS: Hematocrit 28.1 % (36.0-46.0); Hemoglobin 8.7 g/dL (12.2-16.2); Mean Corpuscular Hemoglobin 22.5 pg (28.0-32.0); Mean Corpuscular Hgb Conc. 31.2 g/dL (32.0-36.0); Red Blood Cells 3.89 10^6/uL (4.0-5.20); Red Cell Distribution Width 18.5 % (11.8-14.3); White Blood Cell 4.1 10^3/uL (4.4-10.8)
[2017-11-27 08:06] LABS: Basophils % (manual) 0 (0.0-2.0); Blast Cells 0; Metamyelocytes % 0; Myelocytes % 0; Promyelocytes % 0; Reactive Lymphocytes 0
[2017-11-27 09:07] LABS: Band Neutrophils % (manual) 2; Eosinophils % (manual) 1 (0-7); Lymphocytes % (manual) 22 (10.0-50.0); Monocytes % (manual) 10 (0-12)
[2017-11-27] MEDS ORDERED: ONDANSETRON HCL 4 MG/2 ML VIAL IV ONE (09:15)
[2017-11-27] MEDS ORDERED: ePHEDrine SULFATE 50 MG/ML AMP IV PRN (09:15)
[2017-11-27] MEDS ORDERED: MORPHINE SULFATE 4 MG/ML SYR/VIAL IV PRN (09:15)
[2017-11-27] MEDS ORDERED: MIDAZOLAM HCL 1MG/1ML-2 ML VIAL IV PRN (09:15)
[2017-11-27] MEDS ORDERED: KETOROLAC TROMETH 30 MG/ML 1ML VIAL IV ONE (09:15)
[2017-11-27] MEDS ORDERED: ACCU-CHEK COMFORT CURVE STRIP VI ONE (09:15)
[2017-11-27] MEDS ORDERED: HYDROmorphone HCL 2 MG/ML VL IV PRN (09:15)
[2017-11-27] MEDS ORDERED: LABETALOL HCL 5 MG/ML 4ML SYRINGE IV PRN (09:15)
[2017-11-27 09:41] VITALS: BP 154/73
[2017-11-27] MEDS ORDERED: ceFAZolin 1GM/50ML 50 ML IV ONE (09:50)
[2017-11-27] MEDS ORDERED: MORPHINE SULFATE 4 MG/ML SYR/VIAL IV ONE (10:00)
[2017-11-27] MEDS: PANTOPRAZOLE 40 MG TAB PO SCH (10:00)
[2017-11-27] MEDS: ENOXAPARIN SOD 40 MG/0.4 ML SYRINGE SC SCH (10:00)
[2017-11-27] MEDS ORDERED: IOHEXOL 300 MG/ML 100ML BOTTLE IJ ONE (10:31)
[2017-11-27] MEDS ORDERED: IOHEXOL 180 MG/ML 20ML VIAL IJ ONE (10:31)
[2017-11-27] MEDS ORDERED: MEPERIDINE HCL (50 MG/ML) 1 ML VIAL ONE (10:36)
[2017-11-27] MEDS ORDERED: DEXAMETHASONE SOD PHOS 10MG/1ML VIAL INJ ONE (10:36)
[2017-11-27] MEDS ORDERED: PROPOFOL 10 MG/ML 20 ML IV ONE (10:36)
[2017-11-27] MEDS ORDERED: MIDAZOLAM HCL 1MG/1ML-2 ML VIAL ONE (10:36)
[2017-11-27] MEDS ORDERED: fentaNYL CITRATE 100 MCG/2 ML VL ONE (10:36)
[2017-11-27] MEDS: SODIUM CHLORIDE 0.9% 1,000 ML IV SCH ×2 (10:56→18:05)
[2017-11-27] MEDS: cefTRIAXone 1GM/10ml IVPUSH 10 ML IV SCH (10:56)
[2017-11-27] MEDS: Glucerna Carbsteady SHAKE Vanilla 8oz PO SCH ×3 (10:56→18:05)
[2017-11-27] MEDS: KETOROLAC TROMETH 30 MG/ML 1ML VIAL IV PRN ×2 (12:54→20:23)
[2017-11-27 17:09] VITALS: BP 156/75
[2017-11-27 21:32] VITALS: BP 152/75
[2017-11-27] MEDS: ACETAMINOPHEN 500 MG TAB PO PRN (22:24)
[2017-11-28] MEDS: SODIUM CHLORIDE 0.9% 1,000 ML IV SCH ×2 (04:37→15:24)
[2017-11-28 04:54] VITALS: BP 145/65
[2017-11-28] MEDS: ACCU-CHEK COMFORT CURVE STRIP VI SCH ×2 (06:30→12:32)
[2017-11-28] MEDS: InsuLIN REG 1unit/0.01ml Soln (100units/ml) SC SCH ×2 (06:30→12:32)
[2017-11-28 08:10] LABS: BUN/Creatinine Ratio 15.7; Calcium 8.4 mg/dL (8.5-10.1)
[2017-11-28 08:20] LABS: Basophils # (auto) 0 uL; Basophils % (auto) 0.2 % (0.0-2.0); Eosinophils # (auto) 0 uL; Hematocrit 30.9 % (36.0-46.0); Hemoglobin 9.2 g/dL (12.2-16.2); Lymphocytes # (auto) 0.6 uL; Lymphocytes % (auto) 10.4 % (10.0-50.0); Mean Corpuscular Hemoglobin 23.3 pg (28.0-32.0); Mean Corpuscular Hgb Conc. 29.9 g/dL (32.0-36.0); Monocytes # (auto) 0.4 uL; Monocytes % (auto) 7.2 % (0.0-12.0); Neutrophils # (auto) 4.5 uL; Neutrophils % (auto) 82.2 % (37.0-80.0); Nucleated Red Blood Cells % 0.1 %; Platelet Count (auto) 113 10^3/uL (140-450); Red Blood Cells 3.96 10^6/uL (4.0-5.20); Red Cell Distribution Width 19.7 % (11.8-14.3); White Blood Cell 5.4 10^3/uL (4.4-10.8)
[2017-11-28 09:00] VITALS: BP 139/80
[2017-11-28] MEDS: cefTRIAXone 1GM/10ml IVPUSH 10 ML IV SCH (09:37)
[2017-11-28] MEDS: ENOXAPARIN SOD 40 MG/0.4 ML SYRINGE SC SCH (09:37)
[2017-11-28] MEDS: ACETAMINOPHEN 500 MG TAB PO PRN (09:38)
[2017-11-28] MEDS: PANTOPRAZOLE 40 MG TAB PO SCH (09:43)
[2017-11-28] MEDS: Glucerna Carbsteady SHAKE Vanilla 8oz PO SCH ×2 (09:43→12:32)
[2017-11-28] MEDS: KETOROLAC TROMETH 30 MG/ML 1ML VIAL IV PRN (12:32)
[2017-11-28 13:00] VITALS: BP 150/78
== END 2017-11-28 15:59 | disposition home or self-care (01) | DRG 690 ==
LOC: ER 07:35 → TELE 07:36 → TELE-WESTW 21:25
PROVIDERS: ADMIT Internal Medicine; ATTEND Internal Medicine
PROC: BT1F1ZZ Fluoroscopy of Left Kidney, Ureter and Bladder using Low Osmolar Contrast (ICD-10-PCS; 2017-11-27)
PROC: 0T778DZ Dilation of Left Ureter with Intraluminal Device, Via Natural or Artificial Opening Endoscopic (ICD-10-PCS; principal; 2017-11-27 10:40)
DX: N13.6 Pyonephrosis (principal); E44.0 Moderate protein-calorie malnutrition; K80.20 Calculus of gallbladder without cholecystitis without obstruction; I70.8 Atherosclerosis of other arteries; K42.9 Umbilical hernia without obstruction or gangrene; K21.9 Gastro-esophageal reflux disease without esophagitis; K74.60 Unspecified cirrhosis of liver; D64.9 Anemia, unspecified; D69.6 Thrombocytopenia, unspecified; I10 Essential (primary) hypertension; Z82.49 Family history of ischemic heart disease and other diseases of the circulatory system; E11.9 Type 2 diabetes mellitus without complications; K57.30 Diverticulosis of large intestine without perforation or abscess without bleeding; Z88.5 Allergy status to narcotic agent; Z90.710 Acquired absence of both cervix and uterus; Z85.41 Personal history of malignant neoplasm of cervix uteri; Z80.1 Family history of malignant neoplasm of trachea, bronchus and lung; Z80.3 Family history of malignant neoplasm of breast; Z80.41 Family history of malignant neoplasm of ovary; Z80.8 Family history of malignant neoplasm of other organs or systems; Z82.0 Family history of epilepsy and other diseases of the nervous system; Z82.3 Family history of stroke; Z68.36 Body mass index [BMI] 36.0-36.9, adult
CPT/HCPCS: 36415; 71045; 74018; 74176; 74177; 76000; 76775; 80048; 80053; 81001; 82962; 83036; 84484; 85007; 85025; 85027; 85610; 87086; 96361; 96374; 96375; J0690; J0696; J1100; J1815; J1885; J2250; J2405; J2704; Q9965

== ENCOUNTER 2017-12-20 13:50 | Emergency (ER) | payer MEDICARE, MEDICAID ==
[~2017-12-20] VITALS: Ht 160 cm; Wt 81.6 kg
[2017-12-20] MEDS ORDERED: IBUPROFEN 600 MG TAB PO ONE (14:15)
[2017-12-20] MEDS ORDERED: ACETAMINOPHEN 500 MG TAB PO ONE (14:15)
[2017-12-20 15:31] LABS: Basophils # (auto) 0 uL; Eosinophils # (auto) 0 uL; Lymphocytes # (auto) 0.5 uL; Monocytes # (auto) 0.5 uL; Red Blood Cells 3.69 10^6/uL (4.0-5.20)
[2017-12-20 15:33] LABS: Basophils % (auto) 0.8 % (0.0-2.0); Eosinophils % (auto) 0.7 % (0.0-7.0); Hematocrit 26.7 % (36.0-46.0); Hemoglobin 8.4 g/dL (12.2-16.2); Lymphocytes % (auto) 10.7 % (10.0-50.0); Mean Corpuscular Hemoglobin 22.9 pg (28.0-32.0); Mean Corpuscular Hgb Conc. 31.6 g/dL (32.0-36.0); Mean Corpuscular Volume 72.3 fL (80.0-100.0); Monocytes % (auto) 9.1 % (0.0-12.0); Neutrophils % (auto) 78.7 % (37.0-80.0); Platelet Count (auto) 71 10^3/uL (140-450); Red Cell Distribution Width 18.7 % (11.8-14.3)
[2017-12-20 15:43] LABS: Urine Bacteria MANY /hpf (None Seen); Urine Blood 3+ /uL (Negative); Urine Mucus FEW (None Seen); Urine Specific Gravity 1.015 (1.001-1.035); Urine WBC 530 /hpf (0 - 5); Urine WBC Clumps PRESENT /hpf (None Seen)
[2017-12-20 15:54] LABS: Alanine Aminotransferase 18 U/L (13-56); Albumin 2.8 g/dL (3.4-5.0); Alkaline Phosphatase 157 U/L (45-117); Anion Gap 5 (5-15); Aspartate Aminotransferase 23 U/L (15-37); BUN/Creatinine Ratio 13.5; Bilirubin, Total 0.9 mg/dL (0.2-1.0); Blood Urea Nitrogen 10 mg/dL (7-18); Calcium 8.8 mg/dL (8.5-10.1); Carbon Dioxide 25 mmol/L (21-32); Chloride 107 mmol/L (98-107); GFR African American 101 mL/min; GFR Non-African American 83 mL/min; Glucose 191 mg/dL (74-106); Magnesium 2.1 mg/dL (1.6-2.6); Potassium 3.5 mmol/L (3.5-5.1); Sodium 137 mmol/L (136-145); Total Protein 7.4 g/dL (6.4-8.2)
[2017-12-20] MEDS ORDERED: SODIUM CHLORIDE 0.9% 1,000 ML IV ONE (23:30)
[2017-12-20] MEDS ORDERED: KETOROLAC TROMETH 30 MG/ML 1ML VIAL IV ONE (23:30)
[2017-12-21] MEDS ORDERED: KETOROLAC TROMETH 30 MG/ML 1ML VIAL IV ONE (01:15)
[2017-12-21 05:45] VITALS: BP 155/68
[2017-12-27] MEDS ORDERED: SACC250C PO (11:47)
[2017-12-27] MEDS ORDERED: AMOX500C2 PO (11:47)
[2017-12-27] MEDS ORDERED: LEVO750T2 PO (11:47)
== END 2017-12-21 05:23 | disposition home or self-care (01) ==
LOC: ER 13:50
DX: N20.0 Calculus of kidney (principal); N39.0 Urinary tract infection, site not specified; K80.20 Calculus of gallbladder without cholecystitis without obstruction; E11.9 Type 2 diabetes mellitus without complications; K21.9 Gastro-esophageal reflux disease without esophagitis; I10 Essential (primary) hypertension; Z90.710 Acquired absence of both cervix and uterus; Z88.5 Allergy status to narcotic agent
CPT/HCPCS: 36415; 74176; 80053; 81001; 83735; 84484; 85025; 93005; 96361; 96374; 96376; J1885

== ENCOUNTER 2017-12-21 15:56 | Inpatient (IN) | payer MEDICARE, MEDICAID ==
[~2017-12-21] VITALS: Ht 157.5 cm; Wt 92.8 kg
[2017-12-21] MEDS ORDERED: LEVOFLOXACIN 500MG 100 ML IV ONE (16:15)
[2017-12-21] MEDS ORDERED: SODIUM CHLORIDE 0.9% 2,450 ML IV ONE (16:15)
[2017-12-21 17:07] LABS: Basophils # (auto) 0 uL; Basophils % (auto) 0.2 % (0.0-2.0); Eosinophils # (auto) 0 uL; Mean Corpuscular Hgb Conc. 31.1 g/dL (32.0-36.0)
[2017-12-21 17:09] LABS: Hematocrit 27.5 % (36.0-46.0); Hemoglobin 8.5 g/dL (12.2-16.2); Lymphocytes # (auto) 0.3 uL; Mean Corpuscular Hemoglobin 22.9 pg (28.0-32.0); Mean Corpuscular Volume 73.5 fL (80.0-100.0); Monocytes # (auto) 0.4 uL; Monocytes % (auto) 4.3 % (0.0-12.0); Neutrophils # (auto) 8.1 uL; Neutrophils % (auto) 92.5 % (37.0-80.0); Nucleated Red Blood Cells % 0.1 %; Platelet Count (auto) 62 10^3/uL (140-450); Red Blood Cells 3.74 10^6/uL (4.0-5.20); White Blood Cell 8.7 10^3/uL (4.4-10.8)
[2017-12-21 17:16] LABS: Albumin 2.5 g/dL (3.4-5.0); Anion Gap 13 (5-15); BUN/Creatinine Ratio 14.8; Blood Urea Nitrogen 12 mg/dL (7-18); Carbon Dioxide 18 mmol/L (21-32); Chloride 109 mmol/L (98-107); GFR African American 91 mL/min; GFR Non-African American 75 mL/min; Glucose 199 mg/dL (74-106); Magnesium 1.4 mg/dL (1.6-2.6); Potassium 3.1 mmol/L (3.5-5.1); Sodium 140 mmol/L (136-145)
[2017-12-21 17:21] LABS: Alanine Aminotransferase 16 U/L (13-56); Alkaline Phosphatase 145 U/L (45-117); Aspartate Aminotransferase 28 U/L (15-37); Bilirubin, Total 1.6 mg/dL (0.2-1.0)
[2017-12-21] MEDS ORDERED: SODIUM CHLORIDE 0.9% 1,000 ML IV SCH (17:24)
[2017-12-21] MEDS ORDERED: NITROGLYCERIN 0.4 MG SL TAB SL PRN (17:30)
[2017-12-21] MEDS ORDERED: DEXTROSE (50%) 50ML SYRG IV PRN (17:30)
[2017-12-21] MEDS ORDERED: PIPERACILLIN-TAZOB 3.375GM 100 ML IV ONE (17:30)
[2017-12-21] MEDS ORDERED: PROMETHAZINE HCL 25 MG/ML 1ML IV PRN (17:30)
[2017-12-21 17:37] LABS: Lactic Acid w/Reflex 4.2 mmol/L (0.4-2.0)
[2017-12-21] MEDS ORDERED: POTASSIUM CHL 20MEQ/100ML 100 ML IV ONE ×2 (17:45→18:00)
[2017-12-21] MEDS ORDERED: PANTOPRAZOLE 40 MG TAB PO ONE (18:00)
[2017-12-21] MEDS: SOD CHL 0.9%/ KCL 20MEQ 1,000 ML IV SCH (18:30)
[2017-12-21] MEDS: ACETAMINOPHEN 500 MG TAB PO PRN (18:37)
[2017-12-21 18:53] LABS: Urine Bacteria NONE SEEN /hpf (None Seen); Urine Blood 3+ /uL (Negative); Urine WBC 246 /hpf (0 - 5)
[2017-12-21] MEDS: PIPERACILLIN-TAZOB 3.375GM 100 ML IV SCH ×2 (18:54→23:48)
[2017-12-21 18:57] LABS: Urine Specific Gravity 1.015 (1.001-1.035)
[2017-12-21] MEDS: GLIMEPIRIDE 2 MG PO SCH (22:00)
[2017-12-21 22:30] VITALS: BP 112/48
[2017-12-21] MEDS: ACCU-CHEK COMFORT CURVE STRIP VI SCH (23:48)
[2017-12-21] MEDS: PROPRANOLOL HCL 20 MG TAB PO SCH (23:48)
[2017-12-21] MEDS: InsuLIN REG 1unit/0.01ml Soln (100units/ml) SC SCH (23:49)
[2017-12-22] MEDS: KETOROLAC TROMETH 30 MG/ML 1ML VIAL IV PRN (03:59)
[2017-12-22] MEDS: SOD CHL 0.9%/ KCL 20MEQ 1,000 ML IV SCH ×3 (04:31→23:24)
[2017-12-22 05:00] VITALS: BP 116/50
[2017-12-22] MEDS: PIPERACILLIN-TAZOB 3.375GM 100 ML IV SCH ×4 (05:57→23:23)
[2017-12-22] MEDS: ACCU-CHEK COMFORT CURVE STRIP VI SCH ×4 (06:15→21:48)
[2017-12-22] MEDS: InsuLIN REG 1unit/0.01ml Soln (100units/ml) SC SCH ×4 (06:15→21:47)
[2017-12-22 06:33] LABS: Albumin 2.2 g/dL (3.4-5.0); BUN/Creatinine Ratio 19.6; Bilirubin, Total 1.2 mg/dL (0.2-1.0); Calcium 7.8 mg/dL (8.5-10.1); Potassium 3.7 mmol/L (3.5-5.1); Total Protein 6.2 g/dL (6.4-8.2)
[2017-12-22 09:00] VITALS: BP 113/51
[2017-12-22] MEDS: GLIMEPIRIDE 2 MG PO SCH (10:00)
[2017-12-22 10:25] LABS: Basophils # (auto) 0 uL; Basophils % (auto) 0.5 % (0.0-2.0); Eosinophils # (auto) 0 uL; Monocytes # (auto) 0.8 uL; Neutrophils # (auto) 7.1 uL
[2017-12-22 10:27] LABS: Eosinophils % (auto) 0.2 % (0.0-7.0); Hematocrit 24.3 % (36.0-46.0); Hemoglobin 7.4 g/dL (12.2-16.2); Lymphocytes # (auto) 0.5 uL; Lymphocytes % (auto) 5.7 % (10.0-50.0); Mean Corpuscular Hemoglobin 22.4 pg (28.0-32.0); Mean Corpuscular Hgb Conc. 30.3 g/dL (32.0-36.0); Monocytes % (auto) 9.5 % (0.0-12.0); Neutrophils % (auto) 84.1 % (37.0-80.0); Red Blood Cells 3.29 10^6/uL (4.0-5.20); Red Cell Distribution Width 19.1 % (11.8-14.3); White Blood Cell 8.5 10^3/uL (4.4-10.8)
[2017-12-22] MEDS ORDERED: MAGNESIUM SULFATE 1GM/100ML 100 ML IV ONE (10:30)
[2017-12-22 10:44] LABS: Platelet Count (auto) 49 10^3/uL (140-450)
[2017-12-22] MEDS: PROPRANOLOL HCL 20 MG TAB PO SCH ×2 (10:46→21:47)
[2017-12-22] MEDS: PANTOPRAZOLE 40 MG TAB PO SCH (10:47)
[2017-12-22 11:26] LABS: Lactic Acid w/Reflex 3.3 mmol/L (0.4-2.0)
[2017-12-22 13:00] VITALS: BP 109/54
[2017-12-22] MEDS: PHENAZOPYRIDINE HCL 100 MG TAB PO SCH ×2 (13:30→17:50)
[2017-12-22] MEDS: ACETAMINOPHEN 500 MG TAB PO PRN (13:30)
[2017-12-22 16:37] VITALS: BP 104/62
[2017-12-22] MEDS: GLIMEPIRIDE 2 MG TAB PO SCH (17:50)
[2017-12-22 22:00] VITALS: BP 144/63
[2017-12-23] MEDS: ACETAMINOPHEN 500 MG TAB PO PRN (04:51)
[2017-12-23 05:00] VITALS: BP 146/64
[2017-12-23] MEDS: InsuLIN REG 1unit/0.01ml Soln (100units/ml) SC SCH ×4 (06:24→21:21)
[2017-12-23] MEDS: PIPERACILLIN-TAZOB 3.375GM 100 ML IV SCH ×4 (06:24→23:33)
[2017-12-23] MEDS: ACCU-CHEK COMFORT CURVE STRIP VI SCH ×4 (06:25→21:21)
[2017-12-23 07:19] LABS: Basophils # (auto) 0 uL; Basophils % (auto) 0.9 % (0.0-2.0); Eosinophils # (auto) 0 uL; Hemoglobin 7.4 g/dL (12.2-16.2); Monocytes # (auto) 0.6 uL; Neutrophils # (auto) 4.1 uL; Nucleated Red Blood Cells % 0.1 %; White Blood Cell 5.2 10^3/uL (4.4-10.8)
[2017-12-23 07:21] LABS: Eosinophils % (auto) 0.3 % (0.0-7.0); Hematocrit 24.1 % (36.0-46.0); Lymphocytes # (auto) 0.5 uL; Lymphocytes % (auto) 9.1 % (10.0-50.0); Mean Corpuscular Hemoglobin 22.6 pg (28.0-32.0); Mean Corpuscular Hgb Conc. 30.7 g/dL (32.0-36.0); Mean Corpuscular Volume 73.6 fL (80.0-100.0); Monocytes % (auto) 10.9 % (0.0-12.0); Neutrophils % (auto) 78.8 % (37.0-80.0); Platelet Count (auto) 56 10^3/uL (140-450); Red Blood Cells 3.27 10^6/uL (4.0-5.20); Red Cell Distribution Width 19.9 % (11.8-14.3)
[2017-12-23] MEDS: GLIMEPIRIDE 2 MG TAB PO SCH ×2 (07:39→17:44)
[2017-12-23 07:47] LABS: BUN/Creatinine Ratio 23.5; Calcium 7.7 mg/dL (8.5-10.1); Potassium 3.3 mmol/L (3.5-5.1)
[2017-12-23 07:50] LABS: Bilirubin, Total 0.7 mg/dL (0.2-1.0); Total Protein 6.1 g/dL (6.4-8.2)
[2017-12-23] MEDS: PHENAZOPYRIDINE HCL 100 MG TAB PO SCH ×3 (08:23→17:44)
[2017-12-23 08:38] VITALS: BP 124/50
[2017-12-23] MEDS: PROPRANOLOL HCL 20 MG TAB PO SCH ×2 (10:02→21:20)
[2017-12-23] MEDS: PANTOPRAZOLE 40 MG TAB PO SCH (10:02)
[2017-12-23 12:11] VITALS: BP 121/60
[2017-12-23] MEDS ORDERED: POTASSIUM CHL 20 Meq TABLET PO ONE (12:30)
[2017-12-23] MEDS: metroNIDAZOLE 500 MG TAB PO SCH ×3 (12:40→23:33)
[2017-12-23] MEDS: SOD CHL 0.9%/ KCL 20MEQ 1,000 ML IV SCH ×2 (15:11→20:30)
[2017-12-23 17:01] VITALS: BP 154/76
[2017-12-23 22:00] VITALS: BP 135/88
[2017-12-24] MEDS: HYDROcodone-ACET 5/325MG TAB PO PRN ×2 (01:18→17:32)
[2017-12-24] MEDS: LORazepam 0.5 MG TAB PO PRN ×2 (01:18→20:01)
[2017-12-24 04:33] VITALS: BP 121/65
[2017-12-24] MEDS: SOD CHL 0.9%/ KCL 20MEQ 1,000 ML IV SCH ×2 (05:14→16:30)
[2017-12-24] MEDS: metroNIDAZOLE 500 MG TAB PO SCH ×4 (05:23→23:55)
[2017-12-24] MEDS: PIPERACILLIN-TAZOB 3.375GM 100 ML IV SCH ×4 (05:23→23:55)
[2017-12-24] MEDS: ACCU-CHEK COMFORT CURVE STRIP VI SCH ×4 (05:46→21:56)
[2017-12-24] MEDS: InsuLIN REG 1unit/0.01ml Soln (100units/ml) SC SCH ×4 (05:46→21:56)
[2017-12-24 07:14] LABS: Basophils # (auto) 0 uL; Eosinophils # (auto) 0.1 uL; Hemoglobin 7.6 g/dL (12.2-16.2); Monocytes # (auto) 0.5 uL
[2017-12-24 07:16] LABS: Basophils % (auto) 0.9 % (0.0-2.0); Eosinophils % (auto) 1.9 % (0.0-7.0); Hematocrit 24.9 % (36.0-46.0); Lymphocytes # (auto) 0.5 uL; Lymphocytes % (auto) 13.5 % (10.0-50.0); Mean Corpuscular Hgb Conc. 30.5 g/dL (32.0-36.0); Mean Corpuscular Volume 75.2 fL (80.0-100.0); Monocytes % (auto) 15.3 % (0.0-12.0); Neutrophils # (auto) 2.3 uL; Neutrophils % (auto) 68.4 % (37.0-80.0); Nucleated Red Blood Cells % 0.1 %; Platelet Count (auto) 57 10^3/uL (140-450); Red Blood Cells 3.31 10^6/uL (4.0-5.20); Red Cell Distribution Width 19.8 % (11.8-14.3); White Blood Cell 3.4 10^3/uL (4.4-10.8)
[2017-12-24 07:23] LABS: BUN/Creatinine Ratio 16.7; Calcium 7.7 mg/dL (8.5-10.1); Potassium 3.7 mmol/L (3.5-5.1)
[2017-12-24 08:36] VITALS: BP 127/64
[2017-12-24] MEDS: PHENAZOPYRIDINE HCL 100 MG TAB PO SCH ×3 (08:40→18:32)
[2017-12-24] MEDS: GLIMEPIRIDE 2 MG TAB PO SCH ×2 (08:41→18:32)
[2017-12-24] MEDS: PROPRANOLOL HCL 20 MG TAB PO SCH ×2 (10:00→21:29)
[2017-12-24] MEDS: PANTOPRAZOLE 40 MG TAB PO SCH (10:48)
[2017-12-24 12:19] VITALS: BP 135/63
[2017-12-24] MEDS ORDERED: FLORASTOR (S. BOULARDII) 250 MG CAP PO ONE (13:09)
[2017-12-24] MEDS: ONDANSETRON HCL 4 MG/2 ML VIAL IV PRN (15:23)
[2017-12-24 17:37] VITALS: BP 146/50
[2017-12-24] MEDS: KETOROLAC TROMETH 30 MG/ML 1ML VIAL IV PRN (19:56)
[2017-12-24 21:24] VITALS: BP 118/54
[2017-12-25] MEDS: SOD CHL 0.9%/ KCL 20MEQ 1,000 ML IV SCH ×2 (01:31→11:40)
[2017-12-25 05:26] VITALS: BP 127/56
[2017-12-25] MEDS: PIPERACILLIN-TAZOB 3.375GM 100 ML IV SCH ×4 (05:39→23:48)
[2017-12-25] MEDS: metroNIDAZOLE 500 MG TAB PO SCH (05:40)
[2017-12-25] MEDS: ACCU-CHEK COMFORT CURVE STRIP VI SCH ×4 (06:31→22:05)
[2017-12-25] MEDS: InsuLIN REG 1unit/0.01ml Soln (100units/ml) SC SCH ×4 (06:31→22:00)
[2017-12-25 07:34] LABS: Basophils # (auto) 0 uL; Hemoglobin 8.7 g/dL (12.2-16.2); Lymphocytes # (auto) 0.4 uL; Mean Corpuscular Hemoglobin 22.7 pg (28.0-32.0); Neutrophils # (auto) 2.8 uL; Nucleated Red Blood Cells % 0.1 %; White Blood Cell 3.9 10^3/uL (4.4-10.8)
[2017-12-25 07:37] LABS: Basophils % (auto) 0.6 % (0.0-2.0); Eosinophils # (auto) 0.1 uL; Eosinophils % (auto) 3.6 % (0.0-7.0); Hematocrit 28.4 % (36.0-46.0); Mean Corpuscular Hgb Conc. 30.7 g/dL (32.0-36.0); Monocytes # (auto) 0.5 uL; Neutrophils % (auto) 72.8 % (37.0-80.0); Platelet Count (auto) 57 10^3/uL (140-450); Red Blood Cells 3.84 10^6/uL (4.0-5.20)
[2017-12-25 07:52] LABS: BUN/Creatinine Ratio 18.6; Magnesium 2.2 mg/dL (1.6-2.6); Potassium 3.5 mmol/L (3.5-5.1)
[2017-12-25] MEDS: GLIMEPIRIDE 2 MG TAB PO SCH ×2 (08:00→17:47)
[2017-12-25] MEDS: PHENAZOPYRIDINE HCL 100 MG TAB PO SCH ×3 (08:00→17:48)
[2017-12-25] MEDS: ONDANSETRON HCL 4 MG/2 ML VIAL IV PRN (08:40)
[2017-12-25 08:49] VITALS: BP 149/64
[2017-12-25] MEDS: PROPRANOLOL HCL 20 MG TAB PO SCH ×2 (10:00→22:05)
[2017-12-25] MEDS: FLORASTOR (S. BOULARDII) 250 MG CAP PO SCH (10:34)
[2017-12-25] MEDS: PANTOPRAZOLE 40 MG TAB PO SCH (10:34)
[2017-12-25] MEDS: LOPERAMIDE HCL 2 MG CAP PO PRN (11:43)
[2017-12-25] MEDS: KETOROLAC TROMETH 30 MG/ML 1ML VIAL IV PRN (11:44)
[2017-12-25 13:00] VITALS: BP 160/71
[2017-12-25 17:00] VITALS: BP 151/76
[2017-12-25 18:00] VITALS: BP 133/55
[2017-12-26] MEDS: SOD CHL 0.9%/ KCL 20MEQ 1,000 ML IV SCH ×2 (01:33→15:51)
[2017-12-26] MEDS: PIPERACILLIN-TAZOB 3.375GM 100 ML IV SCH ×3 (05:35→17:53)
[2017-12-26] MEDS: ONDANSETRON HCL 4 MG/2 ML VIAL IV PRN (05:52)
[2017-12-26] MEDS: KETOROLAC TROMETH 30 MG/ML 1ML VIAL IV PRN ×2 (05:52→12:28)
[2017-12-26] MEDS: ACCU-CHEK COMFORT CURVE STRIP VI SCH ×3 (05:54→16:52)
[2017-12-26] MEDS: InsuLIN REG 1unit/0.01ml Soln (100units/ml) SC SCH ×4 (05:54→22:00)
[2017-12-26 06:12] VITALS: BP 145/80
[2017-12-26 06:22] LABS: Basophils % (auto) 0.9 % (0.0-2.0); Hematocrit 30.1 % (36.0-46.0); Hemoglobin 9.4 g/dL (12.2-16.2); Mean Corpuscular Hgb Conc. 31.2 g/dL (32.0-36.0); Monocytes # (auto) 0.6 uL; White Blood Cell 5.4 10^3/uL (4.4-10.8)
[2017-12-26 06:24] LABS: Basophils # (auto) 0 uL; Eosinophils # (auto) 0.1 uL; Eosinophils % (auto) 2.3 % (0.0-7.0); Lymphocytes # (auto) 0.7 uL; Mean Corpuscular Hemoglobin 22.9 pg (28.0-32.0); Mean Corpuscular Volume 73.5 fL (80.0-100.0); Neutrophils % (auto) 73.8 % (37.0-80.0); Nucleated Red Blood Cells % 0.3 %; Platelet Count (auto) 93 10^3/uL (140-450); Red Cell Distribution Width 19.7 % (11.8-14.3)
[2017-12-26 06:34] LABS: Partial Thromboplastin Time 24.7 sec (23.78-33.04); Prothrombin Time 10.7 sec (9.27-12.13)
[2017-12-26] MEDS: PHENAZOPYRIDINE HCL 100 MG TAB PO SCH ×3 (08:00→17:53)
[2017-12-26] MEDS: GLIMEPIRIDE 2 MG TAB PO SCH ×2 (08:00→17:53)
[2017-12-26 09:00] VITALS: BP 133/45
[2017-12-26] MEDS ORDERED: LIDOCAINE 1% (LOCAL ANESTH.) PF 5ml SDV ONE (09:22)
[2017-12-26] MEDS ORDERED: SUCCINYLCHOLINE CHLORIDE 20 MG/ML 10ML VIAL IV ONE (09:22)
[2017-12-26] MEDS: PANTOPRAZOLE 40 MG TAB PO SCH (09:59)
[2017-12-26] MEDS: FLORASTOR (S. BOULARDII) 250 MG CAP PO SCH (09:59)
[2017-12-26] MEDS: PROPRANOLOL HCL 20 MG TAB PO SCH ×3 (10:00→22:00)
[2017-12-26] MEDS ORDERED: ceFAZolin 1GM/50ML 50 ML IV ONE (10:45)
[2017-12-26] MEDS ORDERED: MIDAZOLAM HCL 1MG/1ML-2 ML VIAL ONE (10:59)
[2017-12-26] MEDS ORDERED: PROPOFOL 10 MG/ML 20 ML IV ONE (10:59)
[2017-12-26] MEDS ORDERED: ONDANSETRON HCL 4 MG/2 ML VIAL ONE (10:59)
[2017-12-26] MEDS ORDERED: fentaNYL CITRATE 100 MCG/2 ML VL ONE (10:59)
[2017-12-26] MEDS ORDERED: SODIUM CHLORIDE LOCK 10 ML ONE (10:59)
[2017-12-26] MEDS ORDERED: HYDROcodone-ACET 5/325MG TAB PO PRN (11:00)
[2017-12-26] MEDS ORDERED: METOCLOPRAMIDE HCL 5MG/ml INJ 2ml VIAL IV ONE (11:45)
[2017-12-26] MEDS ORDERED: ACCU-CHEK COMFORT CURVE STRIP VI ONE (11:45)
[2017-12-26] MEDS ORDERED: fentaNYL CITRATE 100 MCG/2 ML VL IV ONE (12:00)
[2017-12-26 13:00] VITALS: BP 137/68
[2017-12-26 17:00] VITALS: BP 125/65
[2017-12-26 20:00] VITALS: BP 146/64
[2017-12-26 22:00] VITALS: BP 146/64
[2017-12-27] MEDS: ACCU-CHEK COMFORT CURVE STRIP VI SCH ×3 (00:58→12:15)
[2017-12-27] MEDS: PIPERACILLIN-TAZOB 3.375GM 100 ML IV SCH ×4 (00:59→12:14)
[2017-12-27 05:00] VITALS: BP 138/63
[2017-12-27] MEDS: InsuLIN REG 1unit/0.01ml Soln (100units/ml) SC SCH ×2 (05:12→11:30)
[2017-12-27] MEDS: SOD CHL 0.9%/ KCL 20MEQ 1,000 ML IV SCH (05:12)
[2017-12-27 07:39] LABS: Basophils # (auto) 0.1 uL; Eosinophils # (auto) 0.2 uL; Hemoglobin 8.6 g/dL (12.2-16.2); Lymphocytes # (auto) 0.8 uL; Lymphocytes % (auto) 14.3 % (10.0-50.0); Mean Corpuscular Hemoglobin 22.3 pg (28.0-32.0); Monocytes # (auto) 0.7 uL; Neutrophils # (auto) 3.5 uL; Platelet Count (auto) 92 10^3/uL (140-450); Red Blood Cells 3.85 10^6/uL (4.0-5.20); White Blood Cell 5.3 10^3/uL (4.4-10.8)
[2017-12-27 07:40] LABS: Basophils % (auto) 1.2 % (0.0-2.0); Eosinophils % (auto) 4.1 % (0.0-7.0); Hematocrit 28.6 % (36.0-46.0); Mean Corpuscular Hgb Conc. 30.1 g/dL (32.0-36.0); Mean Corpuscular Volume 74.2 fL (80.0-100.0); Monocytes % (auto) 13.7 % (0.0-12.0); Neutrophils % (auto) 66.7 % (37.0-80.0); Nucleated Red Blood Cells % 0.3 %; Red Cell Distribution Width 19.7 % (11.8-14.3)
[2017-12-27] MEDS: PHENAZOPYRIDINE HCL 100 MG TAB PO SCH ×2 (08:00→12:00)
[2017-12-27 08:15] LABS: BUN/Creatinine Ratio 22.1; Potassium 3.7 mmol/L (3.5-5.1)
[2017-12-27 09:07] VITALS: BP 146/70
[2017-12-27] MEDS: GLIMEPIRIDE 2 MG TAB PO SCH (09:33)
[2017-12-27] MEDS: PROPRANOLOL HCL 20 MG TAB PO SCH (09:38)
[2017-12-27] MEDS: PANTOPRAZOLE 40 MG TAB PO SCH (09:39)
[2017-12-27] MEDS: FLORASTOR (S. BOULARDII) 250 MG CAP PO SCH (09:39)
[2017-12-27] MEDS: LOPERAMIDE HCL 2 MG CAP PO PRN (10:00)
[2017-12-27 11:27] VITALS: BP 146/70
[2017-12-27] MEDS ORDERED: LEVO750T2 PO (11:47)
[2017-12-27] MEDS ORDERED: SACC250C PO (11:47)
[2017-12-27] MEDS ORDERED: AMOX500C2 PO (11:47)
== END 2017-12-27 13:28 | disposition home or self-care (01) | DRG 872 ==
LOC: EDUNIT# 15:56 → EDBD 15:56 → ER 16:00 → TELE 16:01 → TELE-CENTR 21:45
PROVIDERS: ADMIT Internal Medicine; ATTEND Internal Medicine
PROC: 0TP9XDZ Removal of Intraluminal Device from Ureter, External Approach (ICD-10-PCS; principal; 2017-12-26 11:02)
DX: A41.9 Sepsis, unspecified organism (principal); N20.2 Calculus of kidney with calculus of ureter; E44.0 Moderate protein-calorie malnutrition; N10 Acute pyelonephritis; K74.60 Unspecified cirrhosis of liver; E11.9 Type 2 diabetes mellitus without complications; D69.59 Other secondary thrombocytopenia; E66.9 Obesity, unspecified; I10 Essential (primary) hypertension; I25.10 Atherosclerotic heart disease of native coronary artery without angina pectoris; K21.9 Gastro-esophageal reflux disease without esophagitis; Z68.37 Body mass index [BMI] 37.0-37.9, adult; D50.0 Iron deficiency anemia secondary to blood loss (chronic); E87.6 Hypokalemia; Z80.0 Family history of malignant neoplasm of digestive organs; Z80.1 Family history of malignant neoplasm of trachea, bronchus and lung; Z80.3 Family history of malignant neoplasm of breast; Z80.41 Family history of malignant neoplasm of ovary; Z80.8 Family history of malignant neoplasm of other organs or systems; Z81.8 Family history of other mental and behavioral disorders; Z82.0 Family history of epilepsy and other diseases of the nervous system; Z82.3 Family history of stroke; Z82.49 Family history of ischemic heart disease and other diseases of the circulatory system; Z82.5 Family history of asthma and other chronic lower respiratory diseases; Z82.62 Family history of osteoporosis; Z83.3 Family history of diabetes mellitus; Z85.41 Personal history of malignant neoplasm of cervix uteri; Z90.710 Acquired absence of both cervix and uterus; Z88.6 Allergy status to analgesic agent
CPT/HCPCS: 36415; 71045; 74176; 76775; 80048; 80053; 81001; 82962; 83036; 83605; 83735; 84484; 85025; 85610; 85652; 85730; 86141; 87040; 87077; 87086; 87088; 87186; 87493; 93005; 94761; 96361; 96365; 96367; 96374; 96376; J0330; J0690; J1815; J1885; J1956; J2250; J2405; J2543; J2704; J3480

== ENCOUNTER → 2018-04-18 | Outpatient (CLI) | payer MEDICARE, MEDICAID ==
[~2018-04-18] MED LIST changes: +AMOX500C2 PO; +LEVO750T2 PO; +SACC250C PO
[2018-04-18 13:02] LABS: Potassium 3.8 mmol/L (3.5-5.1)
[2018-04-18 13:08] LABS: Albumin 2.7 g/dL (3.4-5.0); Bilirubin, Total 0.9 mg/dL (0.2-1.0); Calcium 8.7 mg/dL (8.5-10.1); Total Protein 7.4 g/dL (6.4-8.2)
[2018-04-18 17:03] LABS: Basophils # (auto) 0 uL; Eosinophils # (auto) 0.1 uL; Eosinophils % (auto) 2.1 % (0.0-7.0); Hematocrit 28.6 % (36.0-46.0); Hemoglobin 8.6 g/dL (12.2-16.2); Lymphocytes # (auto) 0.6 uL; Lymphocytes % (auto) 20.9 % (10.0-50.0); Mean Corpuscular Hemoglobin 21.6 pg (28.0-32.0); Mean Corpuscular Hgb Conc. 30.1 g/dL (32.0-36.0); Mean Corpuscular Volume 71.8 fL (80.0-100.0); Monocytes # (auto) 0.3 uL; Monocytes % (auto) 9.1 % (0.0-12.0); Neutrophils % (auto) 66.9 % (37.0-80.0); Nucleated Red Blood Cells % 0.1 %; Platelet Count (auto) 76 10^3/uL (140-450); Red Blood Cells 3.98 10^6/uL (4.0-5.20)
== END | disposition home or self-care (01) ==
LOC: LAB 11:52
PROVIDERS: ATTEND Internal Medicine
CPT/HCPCS: 36415; 80053; 83036; 85025; 85652

== ENCOUNTER 2018-05-15 02:04 | Inpatient (IN) | payer MEDICARE, MEDICAID | END 2018-05-18 16:15 | disposition home or self-care (01) | LOC: ER 02:04 → TELE 06:00 → TELE-CENTR 09:27 | DX: A41.51 Sepsis due to Escherichia coli [E. coli] (principal); I50.41 Acute combined systolic (congestive) and diastolic (congestive) heart failure; I13.0 Hypertensive heart and chronic kidney disease with heart failure and stage 1 through stage 4 chronic kidney disease, or unspecified chronic kidney disease; N39.0 Urinary tract infection, site not specified; K74.60 Unspecified cirrhosis of liver; K80.20 Calculus of gallbladder without cholecystitis without obstruction; K57.30 Diverticulosis of large intestine without perforation or abscess without bleeding; I70.0 Atherosclerosis of aorta; E87.6 Hypokalemia; D50.9 Iron deficiency anemia, unspecified; E11.65 Type 2 diabetes mellitus with hyperglycemia; E11.22 Type 2 diabetes mellitus with diabetic chronic kidney disease; K21.9 Gastro-esophageal reflux disease without esophagitis; Z87.442 Personal history of urinary calculi; D69.6 Thrombocytopenia, unspecified; K42.9 Umbilical hernia without obstruction or gangrene; I25.10 Atherosclerotic heart disease of native coronary artery without angina pectoris; N20.0 Calculus of kidney; E66.01 Morbid (severe) obesity due to excess calories ==

== ENCOUNTER → 2018-08-17 | Outpatient (CLI) | payer MEDICARE, MEDICAID ==
[~2018-08-17] MED LIST changes: -AMOX500C2 PO; +GABA100C9 PO; -GLIM1TAB PO; +GLIM4TAB42 PO; +LEVO25TA6 PO; -LEVO750T2 PO; +MAGN400T5 PO; -PRO20T OR; -SACC250C PO
[2018-08-17 09:52] LABS: Basophils # (auto) 0 uL; Basophils % (auto) 1.2 % (0.0-2.0); Eosinophils # (auto) 0.1 uL; Lymphocytes # (auto) 0.9 uL; Monocytes # (auto) 0.3 uL; Neutrophils # (auto) 2.2 uL
[2018-08-17 09:54] LABS: Eosinophils % (auto) 1.7 % (0.0-7.0); Hematocrit 33.9 % (36.0-46.0); Hemoglobin 10.9 g/dL (12.2-16.2); Lymphocytes % (auto) 26.5 % (10.0-50.0); Mean Corpuscular Hemoglobin 25.3 pg (28.0-32.0); Monocytes % (auto) 8.4 % (0.0-12.0); Neutrophils % (auto) 62.2 % (37.0-80.0); Nucleated Red Blood Cells % 0.3 %; Platelet Count (auto) 77 10^3/uL (140-450); Red Cell Distribution Width 17.7 % (11.8-14.3); White Blood Cell 3.5 10^3/uL (4.4-10.8)
[2018-08-17 10:41] LABS: Albumin 3.1 g/dL (3.4-5.0); Potassium 4.4 mmol/L (3.5-5.1)
[2018-08-17 10:45] LABS: BUN/Creatinine Ratio 21.1; Bilirubin, Total 0.7 mg/dL (0.2-1.0); Calcium 9.3 mg/dL (8.5-10.1); Total Protein 7.7 g/dL (6.4-8.2)
== END | disposition home or self-care (01) ==
LOC: LAB 09:36
PROVIDERS: ATTEND Internal Medicine
DX: E11.9 Type 2 diabetes mellitus without complications (principal)
CPT/HCPCS: 36415; 80053; 83036; 85025

== ENCOUNTER 2018-09-25 08:56 | Day surgery (SDC) | payer MEDICARE, MEDICAID ==
[2018-09-21 15:40] LABS: Basophils # (auto) 0 uL; Monocytes # (auto) 0.3 uL; Neutrophils # (auto) 2.1 uL; Platelet Count (auto) 74 10^3/uL (140-450); White Blood Cell 3.2 10^3/uL (4.4-10.8)
[2018-09-21 15:42] LABS: Basophils % (auto) 1.1 % (0.0-2.0); Eosinophils # (auto) 0 uL; Eosinophils % (auto) 1.5 % (0.0-7.0); Hematocrit 32.8 % (36.0-46.0); Hemoglobin 10.5 g/dL (12.2-16.2); Lymphocytes # (auto) 0.7 uL; Lymphocytes % (auto) 22.7 % (10.0-50.0); Mean Corpuscular Hemoglobin 25.7 pg (28.0-32.0); Mean Corpuscular Hgb Conc. 31.9 g/dL (32.0-36.0); Mean Corpuscular Volume 80.6 fL (80.0-100.0); Neutrophils % (auto) 65.7 % (37.0-80.0); Red Blood Cells 4.07 10^6/uL (4.0-5.20); Red Cell Distribution Width 17.8 % (11.8-14.3)
[2018-09-21 15:46] LABS: INR 0.95 (0.9-1.15); Partial Thromboplastin Time 24.7 sec (23.64-32.05)
[~2018-09-25] VITALS: Ht 157.5 cm; Wt 83.0 kg
[~2018-09-25 08:56] MED LIST changes: -GABA100C9 PO; -MAGN400T5 PO; +PROP10TA57 PO
[2018-09-25] MEDS ORDERED: FLUMAZENIL 0.1 MG/ML INJ 10ML MDV IV ONE (11:24)
[2018-09-25] MEDS ORDERED: LIDOCAINE VISCOUS 2% 15ML UD ONE (11:24)
[2018-09-25] MEDS ORDERED: NALOXONE HCL 0.4 MG/ML VIAL ONE (11:24)
[2018-09-25] MEDS ORDERED: SODIUM CHLORIDE LOCK 10 ML ONE (11:24)
[2018-09-25] MEDS ORDERED: diphenhdrAMINE HCL 50 MG/1 ML VL ONE (11:25)
[2018-09-25] MEDS: fentaNYL CITRATE 100 MCG/2 ML VL ONE ×3 (12:17→12:33)
[2018-09-25] MEDS: MIDAZOLAM HCL 5 MG/ML-1ML VIAL ONE ×3 (12:17→12:33)
[2018-09-25 13:15] VITALS: BP 126/59
== END 2018-09-25 13:21 | disposition home or self-care (01) ==
LOC: GI 08:56
PROVIDERS: ATTEND Internal Medicine Gastroenterology
DX: K64.8 Other hemorrhoids (principal); K63.89 Other specified diseases of intestine; K31.89 Other diseases of stomach and duodenum; I85.00 Esophageal varices without bleeding; K76.6 Portal hypertension; Z88.5 Allergy status to narcotic agent; Z79.899 Other long term (current) drug therapy; Z98.890 Other specified postprocedural states
CPT/HCPCS: 36415; 43244; 45378; 82962; 85025; 85610; 85730; J1200; J2250; J3010; J7030; 99152; 99153

== ENCOUNTER 2018-10-23 11:01 | Inpatient (IN) | payer MEDICARE, MEDICAID ==
[~2018-10-23] VITALS: Ht 157.5 cm; Wt 98.7 kg
[2018-10-23] MEDS ORDERED: SODIUM CHLORIDE 0.9% 1,000 ML IVB ONE (11:24)
[2018-10-23] MEDS ORDERED: KETOROLAC TROMETH 15 mg/ml 1ML VL IV ONE (11:30)
[2018-10-23] MEDS ORDERED: ONDANSETRON HCL 4 MG/2 ML VIAL IV ONE (11:30)
[2018-10-23 11:45] LABS: Urine Bacteria MOD /hpf (None Seen); Urine Blood Negative /uL (Negative); Urine Mucus FEW (None Seen); Urine Specific Gravity 1.021 (1.001-1.035); Urine WBC 42 /hpf (0 - 5)
[2018-10-23 11:51] LABS: Basophils # (auto) 0 uL; Basophils % (auto) 0.8 % (0.0-2.0); Eosinophils # (auto) 0 uL; Eosinophils % (auto) 1.1 % (0.0-7.0); Hematocrit 32.3 % (36.0-46.0); Hemoglobin 10.5 g/dL (12.2-16.2); Lymphocytes # (auto) 0.7 uL; Lymphocytes % (auto) 18.8 % (10.0-50.0); Mean Corpuscular Hemoglobin 25.8 pg (28.0-32.0); Mean Corpuscular Hgb Conc. 32.4 g/dL (32.0-36.0); Mean Corpuscular Volume 79.7 fL (80.0-100.0); Monocytes # (auto) 0.3 uL; Monocytes % (auto) 8.5 % (0.0-12.0); Neutrophils # (auto) 2.5 uL; Neutrophils % (auto) 70.8 % (37.0-80.0); Platelet Count (auto) 67 10^3/uL (140-450); Red Blood Cells 4.06 10^6/uL (4.0-5.20); Red Cell Distribution Width 18.6 % (11.8-14.3); White Blood Cell 3.5 10^3/uL (4.4-10.8)
[2018-10-23 12:11] LABS: Calcium 8.3 mg/dL (8.5-10.1); Potassium 3.5 mmol/L (3.5-5.1)
[2018-10-23 12:17] LABS: Albumin 2.7 g/dL (3.4-5.0); BUN/Creatinine Ratio 18.8; Total Protein 7.3 g/dL (6.4-8.2)
[2018-10-23 12:27] LABS: INR 0.99 (0.9-1.15); Partial Thromboplastin Time 25.6 sec (23.64-32.05)
[2018-10-23] MEDS ORDERED: NITROGLYCERIN 0.4 MG SL TAB SL PRN (14:00)
[2018-10-23] MEDS ORDERED: DEXTROSE (50%) 50ML SYRG IV PRN (14:00)
[2018-10-23] MEDS ORDERED: HYDROcodone-ACET 5/325MG TAB PO PRN (14:00)
[2018-10-23] MEDS ORDERED: ACETAMINOPHEN 500 MG TAB PO PRN (14:00)
[2018-10-23] MEDS: SODIUM CHLORIDE 0.9% 1,000 ML IV SCH (14:22)
[2018-10-23] MEDS: cefTRIAXone 1GM/50ML D5W 50 ML IV SCH (14:22)
--- NOTE | 2018-10-23 14:44 | NUR ---
MS admit from ER JENS BULL admitted to tele/MS after SBAR received. Patient oriented to DIMITRI LOONEY RN primary RN, unit, room, bed, and unit policies regarding patient care and visiting hours. Patient weighed by bedscale and encouraged to call if they need something. All questions and concerns addressed, patient verbalized understanding. Note:
[2018-10-23] MEDS: metroNIDAZOLE 500MG/100ML 100 ML IV SCH ×2 (15:03→22:18)
[2018-10-23 15:20] VITALS: BP 149/56
[2018-10-23] MEDS: InsuLIN REG 1unit/0.01ml Soln (100units/ml) SC SCH ×2 (17:00→22:00)
[2018-10-23] MEDS: ACCU-CHEK COMFORT CURVE STRIP VI SCH ×2 (17:00→22:18)
--- NOTE | 2018-10-23 18:00 | NUR ---
PT AWAKE ALERT NO C/O PAIN OR DISCOMFORT NOTED
[2018-10-23 21:42] VITALS: BP 125/65
[2018-10-23] MEDS: DOCUSATE SOD 100 MG CAP PO SCH (22:18)
[2018-10-23] MEDS: ONDANSETRON HCL 4 MG/2 ML VIAL IV PRN (22:29)
[2018-10-24] MEDS: SODIUM CHLORIDE 0.9% 1,000 ML IV SCH ×3 (03:03→18:15)
[2018-10-24 05:26] VITALS: BP 130/60
[2018-10-24] MEDS: metroNIDAZOLE 500MG/100ML 100 ML IV SCH ×3 (06:22→21:42)
[2018-10-24 06:29] LABS: Basophils # (auto) 0 uL; Basophils % (auto) 0.9 % (0.0-2.0); Eosinophils # (auto) 0 uL; Eosinophils % (auto) 0.4 % (0.0-7.0); Lymphocytes # (auto) 0.5 uL; Mean Corpuscular Volume 80.6 fL (80.0-100.0); Monocytes # (auto) 0.2 uL
[2018-10-24 06:40] LABS: Hematocrit 31.5 % (36.0-46.0); Hemoglobin 10.3 g/dL (12.2-16.2); Lymphocytes % (auto) 13.1 % (10.0-50.0); Mean Corpuscular Hemoglobin 26.5 pg (28.0-32.0); Mean Corpuscular Hgb Conc. 32.9 g/dL (32.0-36.0); Monocytes % (auto) 5.7 % (0.0-12.0); Neutrophils # (auto) 2.9 uL; Neutrophils % (auto) 79.9 % (37.0-80.0); Red Cell Distribution Width 18.2 % (11.8-14.3); White Blood Cell 3.6 10^3/uL (4.4-10.8)
[2018-10-24 06:47] LABS: Platelet Count (auto) 56 10^3/uL (140-450)
[2018-10-24 06:48] LABS: Potassium 3.5 mmol/L (3.5-5.1)
[2018-10-24 06:54] LABS: Calcium 8.7 mg/dL (8.5-10.1)
[2018-10-24] MEDS: InsuLIN REG 1unit/0.01ml Soln (100units/ml) SC SCH ×4 (06:57→21:53)
[2018-10-24] MEDS: ACCU-CHEK COMFORT CURVE STRIP VI SCH ×4 (06:57→21:52)
--- NOTE | 2018-10-24 07:10 | NUR ---
Opening shift Received report from RN. Patient alert and orientated, no discomfort noted.
[2018-10-24 09:00] VITALS: BP 150/74
[2018-10-24] MEDS ORDERED: FAMOTIDINE 20 MG TAB PO SCH (10:00)
[2018-10-24] MEDS: DOCUSATE SOD 100 MG CAP PO SCH ×2 (10:00→21:42)
[2018-10-24] MEDS: ONDANSETRON HCL 4 MG/2 ML VIAL IV PRN (10:22)
[2018-10-24] MEDS: cefTRIAXone 1GM/50ML D5W 50 ML IV SCH (10:23)
--- NOTE | 2018-10-24 11:30 | NUR ---
Medication administration Patient blood glucose 145, patient refused 2 units of insulin.
[2018-10-24 13:00] VITALS: BP 144/63
--- NOTE | 2018-10-24 14:54 | NUR ---
Patient resting in bed with eyes closed, respirations even and unlabored, no distress noted. Call light within reach.
[2018-10-24 16:59] VITALS: BP 144/60
--- NOTE | 2018-10-24 18:45 | NUR ---
Closing note patient resting in bed with even and unlabored respirations, no distress noted. Fall precautions in place, with call light within reach.
--- NOTE | 2018-10-24 19:09 | NUR ---
Care endorsed HAL Hussein.
--- NOTE | 2018-10-24 19:13 | NUR ---
Report received re. this pt. Currently this pt asleep in bed in low position. HOB in semi-Lynch's position. Call light near pt. No s/sx pain or discomfort. Call light near pt's hand.
[2018-10-24 21:50] VITALS: BP 140/63
--- NOTE | 2018-10-24 22:34 | NUR ---
Spoke with hospitalist preparation department supervisor, Seamus Galo RN B[employer]OW WORK[employer] HELPER, re. pt's pain. Pt not wanting [place] as it made her too nauseous yesterday. New order for Tramadol 50mg i po x one received and submitted to pharmacy.
[2018-10-24] MEDS ORDERED: traMADol HCL 50 MG TAB PO ONE (23:00)
--- NOTE | 2018-10-25 02:10 | NUR ---
Pt c/o pain returning; she received tramadol at 2328 and states pain "mostly" resolved. Speaks of feeling pressure from sides pushing toward center of abd. Hospitalist contractor general engineering paged.
--- NOTE | 2018-10-25 02:54 | NUR ---
Seamus Galo RN MANAGER [employer]AFETY, responded to paging. Nubain 10mg IV x1 ordered.
[2018-10-25] MEDS ORDERED: NALBUPHINE HCL 10 MG/1ml INJECTION IV ONE (03:00)
--- NOTE | 2018-10-25 03:24 | NUR ---
Nubain 10mg IV given as one time dose for abd pain 11/17.
[2018-10-25 05:16] VITALS: BP 143/70
[2018-10-25] MEDS: ACCU-CHEK COMFORT CURVE STRIP VI SCH ×4 (05:57→21:36)
[2018-10-25] MEDS: InsuLIN REG 1unit/0.01ml Soln (100units/ml) SC SCH ×4 (05:57→21:36)
[2018-10-25] MEDS: metroNIDAZOLE 500MG/100ML 100 ML IV SCH (06:06)
[2018-10-25] MEDS: LEVOTHYROXINE SODIUM 25 MCG TAB PO SCH (06:07)
[2018-10-25] MEDS: SODIUM CHLORIDE 0.9% 1,000 ML IV SCH ×4 (06:08→22:08)
--- NOTE | 2018-10-25 07:30 | NUR ---
Opening Shift Note Assumed care of patient, awake and alert. No S/S of distress/SOB or pain. Nausea treated with medication. 20g left AC iv is patent and saline flushed. Instructed on POC and to call for assist PRN, will continue to monitor for changes Q1hr and PRN.
[2018-10-25 08:05] VITALS: BP 123/69
[2018-10-25] MEDS: cefTRIAXone 1GM/50ML D5W 50 ML IV SCH (08:25)
[2018-10-25] MEDS: PANTOPRAZOLE 40 MG TAB PO SCH (08:26)
[2018-10-25] MEDS: ONDANSETRON HCL 4 MG/2 ML VIAL IV PRN (08:26)
[2018-10-25] MEDS: DOCUSATE SOD 100 MG CAP PO SCH ×2 (08:26→21:36)
--- NOTE | 2018-10-25 09:45 | NUR ---
RE: critical microbiology result This RN was notified of E. Coli ESBL urine culture result. Verbally notified Dr. Montesinos. verbalized understanding. to place orders.
[2018-10-25] MEDS ORDERED: ERTAPENEM SOD INJ 1 GM in SODIUM CHL 0.9% 50 ML IV ONE (11:00)
[2018-10-25 13:00] VITALS: BP 133/55
[2018-10-25 16:26] VITALS: BP 141/63
[2018-10-25] MEDS ORDERED: traMADol HCL 50 MG TAB PO PRN (16:45)
[2018-10-25] MEDS ORDERED: LIDOCAINE 1% (LOCAL ANESTH.) PF 5ml SDV ID ONE (17:15)
--- NOTE | 2018-10-25 17:16 | NUR ---
PICC line placement Patient educated on need for PICC line placement. All risks and benefits explained and all questions and concerns addressed prior to procedure. Noted past medical history and allergies with no contraindications. INR and Plt counts within acceptable range. 4 fr PICC line inserted via right basilic vein using [employer] US and Tip Location System. Sterile technique with maximum barrier precautions utilized. Blood return obtained from single lumen and each flushed easily with NS using proper technique. PICC secured with Stat-lock; biodisc and occlusive dressing applied. Stat portable chest x-ray obtained for PICC tip placement. *Baseline Arm Circumference 35 cm. *Internal Length 44 cm. *External Length 0 cm. *PICC lot #[id number]. Note: EBL 3mls. Tolerated well. Placed easily.
--- NOTE | 2018-10-25 17:38 | NUR ---
Okay to Use PICC Line X-ray completed.
--- NOTE | 2018-10-25 17:58 | NUR ---
Patient resting in bed with even and unlabored respirations No distress noted. Fall precautions in place, call light within reach.
--- NOTE | 2018-10-25 19:30 | NUR ---
Care endorsed to HAL Nicole Patient resting in bed with even and unlabored respirations, no distress noted. Call light within reach.
--- NOTE | 2018-10-25 19:45 | NUR ---
Opening Shift Note Assumed care of patient, awake and alert. No S/S of distress/SOB or pain. Bed locked in lowest position, side rails upx2, call light within reach. Instructed on POC and to call for assist PRN, will continue to monitor for changes Q1hr and PRN.
[2018-10-25 21:30] VITALS: BP 149/72
[2018-10-25] MEDS: SODIUM CHLOR 0.9% PF (SALINE LOCK) 10ML VIAL/SYR IV SCH (21:36)
[2018-10-26 05:00] VITALS: BP 147/63
[2018-10-26] MEDS: ACCU-CHEK COMFORT CURVE STRIP VI SCH ×3 (06:32→17:00)
[2018-10-26] MEDS: LEVOTHYROXINE SODIUM 25 MCG TAB PO SCH (06:32)
[2018-10-26] MEDS: InsuLIN REG 1unit/0.01ml Soln (100units/ml) SC SCH ×4 (06:32→21:58)
[2018-10-26 08:05] VITALS: BP 152/84
[2018-10-26 09:12] VITALS: BP 152/84
[2018-10-26] MEDS: PANTOPRAZOLE 40 MG TAB PO SCH (10:26)
[2018-10-26] MEDS: ERTAPENEM SOD INJ 1 GM in SODIUM CHL 0.9% 50 ML IV SCH (10:26)
[2018-10-26] MEDS: SODIUM CHLOR 0.9% PF (SALINE LOCK) 10ML VIAL/SYR IV SCH ×2 (10:26→21:58)
[2018-10-26] MEDS: DOCUSATE SOD 100 MG CAP PO SCH ×2 (10:26→21:58)
--- NOTE | 2018-10-26 10:53 | NUR ---
Nutrition Assessment Notes please see attached link for complete assessment Est. Needs based on ABW (66 kg): 5048-0176 kcal (20-23 kcal/kgBW), 66-72 gms pro (1.0-1.1 gms/kgBW). Will continue to monitor pertinent labs and reassess nutrient need prn Addendum: 10/26/18 at [address] Amended: Links added.
[2018-10-26 13:00] VITALS: BP 139/90
[2018-10-26] MEDS: SODIUM CHLORIDE 0.9% 1,000 ML IV SCH ×2 (13:02→17:51)
[2018-10-26] MEDS ORDERED: HYDROcodone-ACET 5/325MG TAB PO PRN (15:00)
[2018-10-26 17:00] VITALS: BP 154/66
--- NOTE | 2018-10-26 19:25 | NUR ---
Opening Shift Note Assumed care of patient, awake and alert. No S/S of distress/SOB or pain. Instructed on POC and to call for assist PRN, will continue to monitor for changes Q1hr and PRN.
[2018-10-26 21:59] VITALS: BP 146/67
[2018-10-27] MEDS: ACCU-CHEK COMFORT CURVE STRIP VI SCH ×2 (00:56→06:21)
[2018-10-27 04:57] VITALS: BP 139/65
[2018-10-27 06:11] LABS: Basophils # (auto) 0 uL; Eosinophils # (auto) 0.1 uL; Hematocrit 31.7 % (36.0-46.0); Lymphocytes # (auto) 0.6 uL; Monocytes # (auto) 0.3 uL; Monocytes % (auto) 9.8 % (0.0-12.0); Neutrophils # (auto) 2.1 uL; Platelet Count (auto) 57 10^3/uL (140-450)
[2018-10-27 06:13] LABS: Basophils % (auto) 1.3 % (0.0-2.0); Eosinophils % (auto) 3.3 % (0.0-7.0); Hemoglobin 10.2 g/dL (12.2-16.2); Lymphocytes % (auto) 18.7 % (10.0-50.0); Mean Corpuscular Hemoglobin 26.2 pg (28.0-32.0); Mean Corpuscular Hgb Conc. 32.3 g/dL (32.0-36.0); Mean Corpuscular Volume 80.9 fL (80.0-100.0); Neutrophils % (auto) 66.9 % (37.0-80.0); Nucleated Red Blood Cells % 0.2 %; Red Blood Cells 3.92 10^6/uL (4.0-5.20); Red Cell Distribution Width 18.1 % (11.8-14.3); White Blood Cell 3.2 10^3/uL (4.4-10.8)
[2018-10-27] MEDS: LEVOTHYROXINE SODIUM 25 MCG TAB PO SCH (06:20)
[2018-10-27] MEDS: InsuLIN REG 1unit/0.01ml Soln (100units/ml) SC SCH (06:20)
--- NOTE | 2018-10-27 07:30 | NUR ---
Opening Shift Note RECEIVED REPORT FROM NOC RN. Assumed care of patient, awake and alert. No S/S of distress/SOB or pain. BED IN LOWEST, LOCKED POSITION WITH SIDERAILS UP x2. Instructed on POC and to call for assist PRN, will continue to monitor for changes Q1hr and PRN.
[2018-10-27] MEDS: SODIUM CHLORIDE 0.9% 1,000 ML IV SCH (07:40)
[2018-10-27 07:46] VITALS: BP 138/66
[2018-10-27 08:05] VITALS: BP 138/66
[2018-10-27 09:37] LABS: Anion Gap 10 (5-15); BUN/Creatinine Ratio 17.4; Blood Urea Nitrogen 8 mg/dL (7-18); Calcium 8.1 mg/dL (8.5-10.1); Carbon Dioxide 23 mmol/L (21-32); Chloride 112 mmol/L (98-107); GFR African American 174 mL/min; GFR Non-African American 144 mL/min; Glucose 89 mg/dL (74-106); Magnesium 2.1 mg/dL (1.6-2.6); Sodium 145 mmol/L (136-145)
[2018-10-27] MEDS ORDERED: POTASSIUM CHL 20 Meq TABLET PO ONE (10:00)
[2018-10-27] MEDS: PANTOPRAZOLE 40 MG TAB PO SCH (10:23)
[2018-10-27] MEDS: DOCUSATE SOD 100 MG CAP PO SCH (10:23)
[2018-10-27] MEDS: ERTAPENEM SOD INJ 1 GM in SODIUM CHL 0.9% 50 ML IV SCH (10:23)
[2018-10-27] MEDS: SODIUM CHLOR 0.9% PF (SALINE LOCK) 10ML VIAL/SYR IV SCH (10:26)
[2018-10-27 12:12] VITALS: BP 153/71
[2018-10-27 12:17] VITALS: BP 153/71
== END 2018-10-27 14:10 | disposition home health service (06) | DRG 690 ==
LOC: ER 11:01 → OVERFLOW 11:02 → CENTRAL 14:40
PROVIDERS: ADMIT Nurse Practitioner Acute Care; ATTEND Internal Medicine
PROC: 02HV33Z Insertion of Infusion Device into Superior Vena Cava, Percutaneous Approach (ICD-10-PCS; principal; 2018-10-25)
DX: N10 Acute pyelonephritis (principal); E44.0 Moderate protein-calorie malnutrition; D61.818 Other pancytopenia; D50.9 Iron deficiency anemia, unspecified; E11.65 Type 2 diabetes mellitus with hyperglycemia; E66.9 Obesity, unspecified; I10 Essential (primary) hypertension; K52.9 Noninfective gastroenteritis and colitis, unspecified; K75.81 Nonalcoholic steatohepatitis (NASH); D64.9 Anemia, unspecified; K74.60 Unspecified cirrhosis of liver; B96.20 Unspecified Escherichia coli [E. coli] as the cause of diseases classified elsewhere; E03.9 Hypothyroidism, unspecified; Z16.12 Extended spectrum beta lactamase (ESBL) resistance; Z79.84 Long term (current) use of oral hypoglycemic drugs; Z80.1 Family history of malignant neoplasm of trachea, bronchus and lung; Z80.3 Family history of malignant neoplasm of breast; Z80.41 Family history of malignant neoplasm of ovary; Z81.8 Family history of other mental and behavioral disorders; Z82.49 Family history of ischemic heart disease and other diseases of the circulatory system; Z82.62 Family history of osteoporosis; Z82.5 Family history of asthma and other chronic lower respiratory diseases; Z87.442 Personal history of urinary calculi; Z90.710 Acquired absence of both cervix and uterus; Z88.5 Allergy status to narcotic agent; Z80.49 Family history of malignant neoplasm of other genital organs; Z82.61 Family history of arthritis; Z83.511 Family history of glaucoma; Z80.42 Family history of malignant neoplasm of prostate
CPT/HCPCS: 36415; 36569; 71045; 74176; 76775; 80048; 80053; 81001; 82962; 83036; 83735; 84443; 84550; 85025; 85610; 85730; 87086; 87088; 87186; 94761; 96361; 96374; 96375; G0378; J0696; J1335; J1815; J2405; J3490

== ENCOUNTER 2018-11-16 13:16 | Emergency (ER) | payer MEDICARE, MEDICAID ==
[~2018-11-16] VITALS: Ht 157.5 cm; Wt 83.0 kg
[~2018-11-16 13:16] MED LIST changes: -LEVO25TA6 PO
[2018-11-16 13:24] VITALS: BP 159/50
== END 2018-11-16 16:43 | disposition home or self-care (01) ==
LOC: ER 13:16
DX: Z45.2 Encounter for adjustment and management of vascular access device (principal); E11.9 Type 2 diabetes mellitus without complications; K21.9 Gastro-esophageal reflux disease without esophagitis; I10 Essential (primary) hypertension; Z90.710 Acquired absence of both cervix and uterus; Z87.440 Personal history of urinary (tract) infections; Z88.6 Allergy status to analgesic agent

== ENCOUNTER 2018-11-27 12:40 | Emergency (ER) | payer MEDICARE, MEDICAID ==
[~2018-11-27] VITALS: Ht 157.5 cm; Wt 83.0 kg
[2018-11-27] MEDS ORDERED: PROMETHAZINE HCL 25 MG/ML 1ML IM ONE (16:45)
[2018-11-27] MEDS ORDERED: diphenhdrAMINE HCL 25 MG CAP PO ONE (16:45)
[2018-11-27] MEDS ORDERED: KETOROLAC TROMETH 30 MG/ML 1ML VIAL IM ONE (16:45)
[2018-11-27 17:40] VITALS: BP 148/68
== END 2018-11-27 17:53 | disposition home or self-care (01) ==
LOC: ER 12:40
DX: M77.9 Enthesopathy, unspecified (principal); G43.909 Migraine, unspecified, not intractable, without status migrainosus; E11.9 Type 2 diabetes mellitus without complications; K21.9 Gastro-esophageal reflux disease without esophagitis; I10 Essential (primary) hypertension; Z87.442 Personal history of urinary calculi
CPT/HCPCS: 70450; 72040; 96372; 99284; J1885; J2550

== ENCOUNTER 2018-12-06 10:11 | Emergency (ER) | payer MEDICARE, MEDICAID ==
[~2018-12-06] VITALS: Ht 157.5 cm; Wt 87.5 kg
[2018-12-06 10:37] VITALS: BP 147/55
[2018-12-06] MEDS ORDERED: IBUPROFEN 800 MG TAB PO ONE (11:00)
== END 2018-12-06 11:29 | disposition home or self-care (01) ==
LOC: ER 10:11
DX: S80.01XA Contusion of right knee, initial encounter (principal); S00.531A Contusion of lip, initial encounter; E11.9 Type 2 diabetes mellitus without complications; K21.9 Gastro-esophageal reflux disease without esophagitis; I10 Essential (primary) hypertension; Z90.710 Acquired absence of both cervix and uterus; Z86.39 Personal history of other endocrine, nutritional and metabolic disease; Z87.442 Personal history of urinary calculi; Z88.6 Allergy status to analgesic agent; W18.39XA Other fall on same level, initial encounter; Y93.89 Activity, other specified; Y92.89 Other specified places as the place of occurrence of the external cause; Y99.8 Other external cause status
CPT/HCPCS: 70486; 71046; 73562

== ENCOUNTER → 2018-12-12 | Outpatient (CLI) | payer MEDICARE, MEDICAID ==
[2018-12-12 13:00] LABS: White Blood Cell 3.7 10^3/uL (4.4-10.8)
[2018-12-12 13:02] LABS: Hematocrit 34.4 % (36.0-46.0); Mean Corpuscular Hgb Conc. 31.9 g/dL (32.0-36.0); Mean Corpuscular Volume 81.5 fL (80.0-100.0); Platelet Count (auto) 86 10^3/uL (140-450); Red Blood Cells 4.22 10^6/uL (4.0-5.20); Red Cell Distribution Width 17.9 % (11.8-14.3)
[2018-12-12 13:05] LABS: Band Neutrophils % (manual) 0; Basophils % (manual) 0 (0.0-2.0); Blast Cells 0; Metamyelocytes % 0; Myelocytes % 0; Promyelocytes % 0; Reactive Lymphocytes 0
[2018-12-12 13:39] LABS: Albumin 2.9 g/dL (3.4-5.0); BUN/Creatinine Ratio 17.2; Calcium 9.2 mg/dL (8.5-10.1)
[2018-12-12 13:51] LABS: Eosinophils % (manual) 1 (0-7); Lymphocytes % (manual) 22 (10.0-50.0); Monocytes % (manual) 5 (0-12)
[2018-12-12 13:52] LABS: Bilirubin, Total 0.8 mg/dL (0.2-1.0); Total Protein 7.6 g/dL (6.4-8.2)
[2018-12-13 08:41] LABS: Urine WBC None Seen /hpf (0 - 5)
[2018-12-13 09:07] LABS: Urine Amorphous Crystal FEW /hpf (None Seen); Urine Bacteria NONE SEEN /hpf (None Seen); Urine Blood Negative /uL (Negative); Urine Specific Gravity 1.012 (1.001-1.035)
== END | disposition home or self-care (01) ==
LOC: LAB 12:22
PROVIDERS: ATTEND Internal Medicine
DX: R10.9 Unspecified abdominal pain (principal)
CPT/HCPCS: 36415; 80053; 81001; 82150; 83690; 85007; 85027; 85652

== ENCOUNTER → 2019-02-05 | Outpatient (CLI) | payer MEDICARE, MEDICAID | END | disposition home or self-care (01) | LOC: LAB 08:27 | PROVIDERS: ATTEND Internal Medicine | DX: E11.42 Type 2 diabetes mellitus with diabetic polyneuropathy (principal); K74.60 Unspecified cirrhosis of liver | CPT/HCPCS: 36415; 83036; 84439; 84443 ==

== ENCOUNTER 2019-02-11 00:11 | Emergency (ER) | payer MEDICARE, MEDICAID ==
[~2019-02-11] VITALS: Ht 157.5 cm; Wt 90.7 kg
[2019-02-11] MEDS ORDERED: IOHEXOL 300 MG/ML 100ML BOTTLE IJ ONE (00:36)
[2019-02-11 00:51] LABS: Basophils # (auto) 0.1 uL; Basophils % (auto) 2.7 % (0.0-2.0); Eosinophils # (auto) 0.1 uL; Eosinophils % (auto) 1.4 % (0.0-7.0); Hematocrit 36.6 % (36.0-46.0); Hemoglobin 11.7 g/dL (12.2-16.2); Lymphocytes # (auto) 0.7 uL; Lymphocytes % (auto) 13.6 % (10.0-50.0); Mean Corpuscular Hemoglobin 26.6 pg (28.0-32.0); Mean Corpuscular Volume 82.9 fL (80.0-100.0); Monocytes # (auto) 0.3 uL; Monocytes % (auto) 6.1 % (0.0-12.0); Neutrophils # (auto) 3.9 uL; Neutrophils % (auto) 76.2 % (37.0-80.0); Platelet Count (auto) 79 10^3/uL (140-450); Red Blood Cells 4.41 10^6/uL (4.0-5.20); Red Cell Distribution Width 17.5 % (11.8-14.3); White Blood Cell 5.1 10^3/uL (4.4-10.8)
[2019-02-11 01:08] LABS: Albumin 3.1 g/dL (3.4-5.0); BUN/Creatinine Ratio 19.4; Potassium 3.5 mmol/L (3.5-5.1)
[2019-02-11 01:11] LABS: Bilirubin, Total 0.6 mg/dL (0.2-1.0); Total Protein 8.2 g/dL (6.4-8.2)
[2019-02-11] MEDS ORDERED: cloNIDine HCL 0.1 MG TAB PO ONE (01:30)
[2019-02-11 02:40] LABS: Urine WBC None Seen /hpf (0 - 5)
[2019-02-11 02:53] LABS: Urine Bacteria NONE SEEN /hpf (None Seen); Urine Blood Negative /uL (Negative); Urine Mucus MODERATE (None Seen); Urine Specific Gravity 1.016 (1.001-1.035)
[2019-02-11 03:00] VITALS: BP 137/53
[2019-02-11] MEDS ORDERED: metroNIDAZOLE 500 MG TAB PO ONE (03:45)
[2019-02-11] MEDS ORDERED: HYDROmorphone HCL 2 MG/ML VL IV ONE (03:45)
[2019-02-11] MEDS ORDERED: ONDANSETRON HCL 4 MG/2 ML VIAL IV ONE (03:45)
[2019-02-11] MEDS ORDERED: cefTRIAXone 1GM/50ML D5W 50 ML IV ONE (03:45)
== END 2019-02-11 05:47 | disposition home or self-care (01) ==
LOC: EDBD 00:11 → EDUNIT# 00:11 → ER 00:11
DX: K29.00 Acute gastritis without bleeding (principal); K80.20 Calculus of gallbladder without cholecystitis without obstruction; K57.30 Diverticulosis of large intestine without perforation or abscess without bleeding; K62.89 Other specified diseases of anus and rectum; E11.9 Type 2 diabetes mellitus without complications; K21.9 Gastro-esophageal reflux disease without esophagitis; I10 Essential (primary) hypertension; Z90.710 Acquired absence of both cervix and uterus; Z88.5 Allergy status to narcotic agent; Z79.899 Other long term (current) drug therapy
CPT/HCPCS: 36415; 74176; 80053; 81001; 85025; 93005; 96365; 96375; 99284; J0696; J1170; J2405

== ENCOUNTER → 2019-02-26 | Outpatient (CLI) | payer MEDICARE, MEDICAID | END | disposition home or self-care (01) | LOC: LAB 11:54 | PROVIDERS: ATTEND Internal Medicine | DX: R31.9 Hematuria, unspecified (principal) | CPT/HCPCS: 87086; 87088; 87186 ==

== ENCOUNTER → 2019-05-01 | Outpatient (CLI) | payer MEDICARE, MEDICAID ==
[2019-05-01 09:04] LABS: Eosinophils # (auto) 0.1 uL; Lymphocytes # (auto) 0.7 uL; Monocytes # (auto) 0.3 uL; Neutrophils # (auto) 1.4 uL; White Blood Cell 2.5 10^3/uL (4.4-10.8)
[2019-05-01 09:05] LABS: Basophils # (auto) 0 uL; Basophils % (auto) 1.1 % (0.0-2.0); Eosinophils % (auto) 2.4 % (0.0-7.0); Hematocrit 32.5 % (36.0-46.0); Hemoglobin 10.3 g/dL (12.2-16.2); Lymphocytes % (auto) 27.6 % (10.0-50.0); Mean Corpuscular Hemoglobin 25.1 pg (28.0-32.0); Mean Corpuscular Hgb Conc. 31.8 g/dL (32.0-36.0); Mean Corpuscular Volume 78.9 fL (80.0-100.0); Neutrophils % (auto) 56.9 % (37.0-80.0); Nucleated Red Blood Cells % 0.3 %; Platelet Count (auto) 69 10^3/uL (140-450); Red Blood Cells 4.12 10^6/uL (4.0-5.20); Red Cell Distribution Width 16.4 % (11.8-14.3)
[2019-05-01 09:20] LABS: INR 1.05 (0.9-1.15)
[2019-05-01 09:22] LABS: Urine Bacteria FEW /hpf (None Seen); Urine Blood 2+ /uL (Negative); Urine Mucus MODERATE (None Seen); Urine Specific Gravity 1.011 (1.001-1.035); Urine WBC 12 /hpf (0 - 5)
[2019-05-01 09:41] LABS: Potassium 3.3 mmol/L (3.5-5.1)
[2019-05-01 09:45] LABS: Free T4 (Free Thyroxine) 0.75 ng/dL (0.89-1.76)
[2019-05-01 09:52] LABS: Albumin 2.9 g/dL (3.4-5.0); Calcium 9.1 mg/dL (8.5-10.1); Total Protein 7.7 g/dL (6.4-8.2)
== END | disposition home or self-care (01) ==
LOC: LAB 08:33
PROVIDERS: ATTEND Internal Medicine
DX: K74.5 Biliary cirrhosis, unspecified (principal); E11.42 Type 2 diabetes mellitus with diabetic polyneuropathy; K74.60 Unspecified cirrhosis of liver
CPT/HCPCS: 36415; 80053; 80061; 81001; 82043; 82607; 83036; 84439; 84443; 85025; 85610; 85652

== ENCOUNTER → 2019-05-16 | Outpatient (CLI) | payer MEDICARE ==
[2019-05-16 12:48] LABS: Urine Bacteria NONE SEEN /hpf (None Seen); Urine Blood 3+ /uL (Negative); Urine Budding Yeast OCCASIONAL /hpf (None Seen); Urine Mucus FEW (None Seen); Urine Specific Gravity 1.021 (1.001-1.035); Urine WBC 83 /hpf (0 - 5)
== END | disposition home or self-care (01) ==
LOC: LAB 12:27
PROVIDERS: ATTEND Internal Medicine
DX: N20.0 Calculus of kidney (principal); N39.0 Urinary tract infection, site not specified
CPT/HCPCS: 81001

== ENCOUNTER → 2019-07-26 | Outpatient (CLI) | payer MEDICARE, MEDICAID ==
[2019-07-26 11:18] LABS: Basophils # (auto) 0.1 10 ^3/uL (0-0.2); Basophils % (auto) 1.8 % (0.0-2.0); Eosinophils # (auto) 0.1 10 ^3/uL (0-0.8); Hematocrit 33.9 % (36.0-46.0); Hemoglobin 10.9 g/dL (12.2-16.2); Mean Corpuscular Hemoglobin 25.4 pg (28.0-32.0); Monocytes # (auto) 0.3 10 ^3/uL (0-1.3); Monocytes % (auto) 7.5 % (0.0-12.0); Neutrophils # (auto) 2.3 10 ^3/uL (1.6-8.6); Nucleated Red Blood Cells % 0.1 %
[2019-07-26 11:19] LABS: Eosinophils % (auto) 3.2 % (0.0-7.0); Lymphocytes # (auto) 0.8 10 ^3/uL (0.4-5.4); Lymphocytes % (auto) 23.4 % (10.0-50.0); Mean Corpuscular Hgb Conc. 32.1 g/dL (32.0-36.0); Mean Corpuscular Volume 79.4 fL (80.0-100.0); Neutrophils % (auto) 64.1 % (37.0-80.0); Platelet Count (auto) 82 10^3/uL (140-450); Red Blood Cells 4.27 10^6/uL (4.0-5.20); Red Cell Distribution Width 17.5 % (11.8-14.3); White Blood Cell 3.6 10^3/uL (4.4-10.8)
[2019-07-26 12:01] LABS: Albumin 2.9 g/dL (3.4-5.0); Calcium 8.9 mg/dL (8.5-10.1); Potassium 4.1 mmol/L (3.5-5.1)
[2019-07-26 12:05] LABS: BUN/Creatinine Ratio 18.8; Bilirubin, Total 0.8 mg/dL (0.2-1.0); Total Protein 8.4 g/dL (6.4-8.2)
[2019-07-29 10:35] LABS: Urine Bacteria FEW /hpf (None Seen); Urine Blood 3+ /uL (Negative); Urine Budding Yeast OCCASIONAL /hpf (None Seen); Urine Specific Gravity 1.016 (1.001-1.035); Urine WBC 45 /hpf (0 - 5)
== END | disposition home or self-care (01) ==
LOC: LAB 10:54
PROVIDERS: ATTEND Internal Medicine
DX: R31.9 Hematuria, unspecified (principal); E11.42 Type 2 diabetes mellitus with diabetic polyneuropathy; R19.4 Change in bowel habit
CPT/HCPCS: 36415; 80053; 81001; 83036; 84439; 84443; 85025; 87086

== ENCOUNTER 2019-12-25 19:29 | Emergency (ER) | payer MEDICARE, MEDICAID ==
[~2019-12-25] VITALS: Ht 160 cm; Wt 85.7 kg
[2019-12-25 21:15] LABS: Urine Bacteria NONE SEEN /hpf (None Seen); Urine Blood TRACE /uL (Negative); Urine Specific Gravity 1.017 (1.001-1.035); Urine WBC 3 /hpf (0 - 5)
[2019-12-25 23:48] LABS: Basophils # (auto) 0.1 10 ^3/uL (0-0.2); Basophils % (auto) 1.4 % (0.0-2.0); Eosinophils # (auto) 0.2 10 ^3/uL (0-0.8); Hematocrit 46.3 % (36.0-46.0); Hemoglobin 14.5 g/dL (12.2-16.2); Lymphocytes # (auto) 1.2 10 ^3/uL (0.4-5.4); Lymphocytes % (auto) 24.4 % (10.0-50.0); Mean Corpuscular Hemoglobin 27.8 pg (28.0-32.0); Mean Corpuscular Hgb Conc. 31.4 g/dL (32.0-36.0); Mean Corpuscular Volume 88.7 fL (80.0-100.0); Monocytes # (auto) 0.4 10 ^3/uL (0-1.3); Monocytes % (auto) 8.7 % (0.0-12.0); Neutrophils # (auto) 3.2 10 ^3/uL (1.6-8.6); Neutrophils % (auto) 62.5 % (37.0-80.0); Platelet Count (auto) 86 10^3/uL (140-450); Red Blood Cells 5.22 10^6/uL (4.0-5.20); White Blood Cell 5.1 10^3/uL (4.4-10.8)
[2019-12-25 23:51] LABS: Red Cell Distribution Width 26.2 % (11.8-14.3)
[2019-12-26 00:05] LABS: Chloride 109 mmol/L (98-107); Potassium 4.3 mmol/L (3.5-5.1); Sodium 139 mmol/L (136-145)
[2019-12-26 00:13] LABS: Alanine Aminotransferase 32 U/L (13-56); Albumin 3.2 g/dL (3.4-5.0); Alkaline Phosphatase 176 U/L (45-117); Amylase 45 U/L (25-115); Anion Gap 5 (5-15); Aspartate Aminotransferase 44 U/L (15-37); BUN/Creatinine Ratio 20.3; Bilirubin, Total 0.7 mg/dL (0.2-1.0); Blood Urea Nitrogen 14 mg/dL (7-18); Calcium 10.1 mg/dL (8.5-10.1); Carbon Dioxide 25 mmol/L (21-32); GFR African American 109 mL/min; GFR Non-African American 90 mL/min; Glucose 113 mg/dL (74-106); Lipase 179 U/L (73-393); Total Protein 8.3 g/dL (6.4-8.2)
[2019-12-26] MEDS ORDERED: HYDROmorphone HCL 2 MG/ML VL IV ONE (04:00)
[2019-12-26] MEDS ORDERED: ONDANSETRON HCL 4 MG/2 ML VIAL IV ONE (04:00)
[2019-12-26 04:15] VITALS: BP 118/45
== END 2019-12-26 05:19 | disposition home or self-care (01) ==
LOC: ER 19:29
DX: N30.00 Acute cystitis without hematuria (principal); E11.9 Type 2 diabetes mellitus without complications; K21.9 Gastro-esophageal reflux disease without esophagitis; I10 Essential (primary) hypertension; Z79.899 Other long term (current) drug therapy; Z88.5 Allergy status to narcotic agent; Z90.710 Acquired absence of both cervix and uterus
CPT/HCPCS: 36415; 74176; 80053; 81001; 82150; 83690; 83735; 84484; 85025; 96374; 96375; 99284; J1170; J2405; J7030

== ENCOUNTER 2021-02-12 16:50 | Emergency (ER) | payer MEDICARE, MEDICAID ==
[~2021-02-12] VITALS: Ht 157.5 cm; Wt 81.6 kg
[2021-02-12 16:50] VITALS: BP 146/69
== END 2021-02-12 20:28 | disposition left against medical advice (07) ==
LOC: ER 16:50 → EDBD 16:50 → ER 20:28
DX: R42 Dizziness and giddiness (principal); I10 Essential (primary) hypertension; E11.9 Type 2 diabetes mellitus without complications; K21.9 Gastro-esophageal reflux disease without esophagitis; Z88.5 Allergy status to narcotic agent; Z79.899 Other long term (current) drug therapy; Z87.442 Personal history of urinary calculi; Z98.890 Other specified postprocedural states; Z90.710 Acquired absence of both cervix and uterus
CPT/HCPCS: 93005

== ENCOUNTER 2023-12-19 18:35 | Emergency (ER) | payer MEDICARE, MEDICAID ==
[~2023-12-19] VITALS: Ht 157.5 cm; Wt 77.0 kg
[~2023-12-19 18:35] MED LIST changes: -PROP10TA57 PO; +PROP1TAB51 PO
[2023-12-19 18:47] VITALS: BP 174/83; PULSE 72; RESP 20; O2SAT 99
[2023-12-19] MEDS ORDERED: HYDROcodone-ACET 10/325MG TAB PO ONE (19:15)
== END 2023-12-19 20:06 | disposition left against medical advice (07) ==
LOC: EDBD 18:35 → ER 18:35
DX: S23.3XXA Sprain of ligaments of thoracic spine, initial encounter (principal); S33.5XXA Sprain of ligaments of lumbar spine, initial encounter; E11.9 Type 2 diabetes mellitus without complications; K21.9 Gastro-esophageal reflux disease without esophagitis; I10 Essential (primary) hypertension; Z90.710 Acquired absence of both cervix and uterus; Z87.442 Personal history of urinary calculi; V43.62XA Car passenger injured in collision with other type car in traffic accident, initial encounter; Y93.89 Activity, other specified; Y92.488 Other paved roadways as the place of occurrence of the external cause; Y99.8 Other external cause status